=== PATIENT | female | born 1970 | race African-American/Black ===

== ENCOUNTER 2018-02-28 05:25 | Inpatient (IN) | payer MEDICARE, OTHER ==
[2018-02-28] VITALS (8 sets, daily range): BP systolic 91–121; BP diastolic 51–86
[~2018-02-28] VITALS: Ht 160 cm; Wt 66.0 kg
[~2018-02-28 05:25] MED LIST: AMIT25TA9 PO; DICL100G16 PO; FLUT1DIS5 INH; HYDR4TAB56 PO; MONT10TA24 PO; RANI150T7 PO; TIOT18CA3 INH
[2018-02-28] MEDS ORDERED: ALBUTEROL (0.083%) 2.5MG/3ML NEB HHN STA ×2 (05:59→06:19)
[2018-02-28] MEDS ORDERED: IPRATROPIUM BROMIDE (0.02%) 0.5MG/2.5ML NEB HHN STA ×2 (05:59→06:19)
[2018-02-28] MEDS ORDERED: METHYLPREDNISOLONE SOD SUCC 125 MG/2 ML VIAL IV STA (05:59)
[2018-02-28] MEDS ORDERED: ACETAMINOPHEN 325MG TABLET PO STA (06:19)
[2018-02-28] MEDS ORDERED: LEVOFLOXACIN 750MG PREMIX 150 ML IV ONE (06:30)
[2018-02-28] MEDS ORDERED: SODIUM CHLORIDE 0.9% 1000ML BAG (SEPSIS BOLUS) IV ONE (06:30)
[2018-02-28 07:00] LABS: BASOPHILS % 0.9 % (0.0-2.0); EOSINOPHILS % 0.8 % (0.0-5.0); HEMATOCRIT. 42.4 % (36.0-48.0); HEMOGLOBIN. 13.7 g/dL (12.0-16.0); LYMPHOCYTES % 22.6 % (20.0-50.0); MEAN CORPUSCULAR VOLUME 86.8 fL (81.0-99.0); MEAN PLATELET VOLUME 8.1 fl (7.4-10.4); MONOCYTES % 12.8 % (2.0-8.0); NEUTROPHILS % 62.9 % (40.0-76.0); PLATELET 272 x1000/uL (130-400); RED BLOOD CELL COUNT 4.89 mill/uL (4.2-5.4); RED CELL DISTRIBUTION WIDTH 16.5 % (11.6-14.6)
[2018-02-28 07:05] LABS: CHLORIDE 96 mEq/L (98-107)
[2018-02-28] MEDS ORDERED: MORPHINE SULFATE 4 MG/ML CPJ (NOT FOR IM USE) IV STA (07:23)
[2018-02-28] MEDS ORDERED: ONDANSETRON HCL 4MG/2ML INJ IV STA (07:23)
[2018-02-28] MEDS ORDERED: HYDROCODONE/ACETAMINOPHEN 5/325MG TABLET PO ONE (07:30)
[2018-02-28 08:59] LABS: BG BASE EXCESS 4.7 mmol/L (-2.0-2.0); BG BILEVEL POS AIRWAY PRESSURE 15/5; BG CARBOXYHEMOGLOBIN 5.5 % (0.5-1.5); BG DEOXYHEMOGLOBIN 0.2 % (0.0-5.0); BG FRACTION INSPIRED OXYGEN 100; BG HCO3 ACT 34.6 mmol/L (22.0-26.0); BG METHEMOGLOBIN 0.4 % (0.0-1.5); BG OXYGEN SATURATION 99.8 % (92.0-98.5); BG OXYHEMOGLOBIN 93.9 % (94.0-97.0); BG PCO2 78.7 mmHg (35.0-45.0); BG PH 7.261 (7.350-7.450); BG SAMPLE SITE RIGHT RADIAL; BG TOTAL HEMOGLOBIN 14.4 g/dL (12.0-18.0); BG VENT MODE MASK - BIPAP; BG VENT RATE 16 set
[2018-02-28] MEDS ORDERED: DIPHENHYDRAMINE 50MG/ML VIAL IV PRN (11:15)
[2018-02-28] MEDS ORDERED: MAGNESIUM/ALUMINUM HYDROXIDE/SIMETHICONE 30ML UDC PO PRN (11:15)
[2018-02-28] MEDS ORDERED: CLONIDINE 0.1MG TABLET PO PRN (11:15)
[2018-02-28] MEDS ORDERED: ONDANSETRON HCL 4MG/2ML INJ IV PRN (11:15)
[2018-02-28] MEDS ORDERED: HYDROCODONE/ACETAMINOPHEN 5/325MG TABLET PO PRN (11:15)
[2018-02-28] MEDS ORDERED: ACETAMINOPHEN 650MG SUPP PR PRN (11:15)
[2018-02-28] MEDS ORDERED: IPRATROPIUM/ALBUTEROL 0.5-3(2.5)MG/3ML NEB INH PRN (11:15)
[2018-02-28] MEDS ORDERED: NA PHOS,M-B/NA PHOS,DI-BA ENEMA 118ML PR PRN (11:15)
[2018-02-28] MEDS: FAMOTIDINE 20MG/2ML VIAL IV SCH ×3 (12:06→21:27)
[2018-02-28] MEDS: ENOXAPARIN 40MG/0.4ML SYR SUBCUT SCH (12:07)
[2018-02-28 12:15] LABS: BG BASE EXCESS 5.6 mmol/L (-2.0-2.0); BG BILEVEL POS AIRWAY PRESSURE 15/5; BG CARBOXYHEMOGLOBIN 1.9 % (0.5-1.5); BG DEOXYHEMOGLOBIN 0.1 % (0.0-5.0); BG FRACTION INSPIRED OXYGEN 100; BG HCO3 ACT 35.5 mmol/L (22.0-26.0); BG METHEMOGLOBIN 0.4 % (0.0-1.5); BG OXYGEN SATURATION 99.9 % (92.0-98.5); BG OXYHEMOGLOBIN 97.6 % (94.0-97.0); BG PCO2 79.4 mmHg (35.0-45.0); BG PH 7.268 (7.350-7.450); BG PO2 558.8 mmHg (75.0-100.0); BG SAMPLE SITE LEFT RADIAL; BG VENT MODE MASK - BIPAP
[2018-02-28] MEDS ORDERED: non (12:36)
[2018-02-28] MEDS ORDERED: LIDO700A30 TP (12:36)
[2018-02-28] MEDS ORDERED: OXYC-523 MT (12:36)
[2018-02-28] MEDS ORDERED: MORP15TA67 MT (12:36)
[2018-02-28] MEDS ORDERED: ATROV INH (12:36)
[2018-02-28] MEDS ORDERED: GABA-531 MT (12:36)
[2018-02-28] MEDS ORDERED: P20 MT (12:36)
[2018-02-28] MEDS: IPRATROPIUM/ALBUTEROL 0.5-3(2.5)MG/3ML NEB HHN SCH ×3 (13:45→20:26)
[2018-02-28] MEDS: METHYLPREDNISOLONE SOD SUCC 40 MG/ML VIAL IV SCH ×3 (14:45→22:00)
[2018-02-28 15:43] LABS: INR 1.1; PROTHROMBIN TIME 10.7 sec (9.1-11.1)
[2018-02-28] MEDS: MONTELUKAST SODIUM 10MG TABLET PO SCH (16:43)
[2018-02-28] MEDS: HYDROCODONE/APAP 7.5/325MG 1 TAB TABLET PO PRN (21:27)
[2018-02-28] MEDS ORDERED: HYDROCODONE/APAP 7.5/325MG 1 TAB TABLET PO PRN (21:30)
[2018-03-01] VITALS (12 sets, daily range): BP systolic 104–152; BP diastolic 19–96
[2018-03-01] MEDS: IPRATROPIUM/ALBUTEROL 0.5-3(2.5)MG/3ML NEB HHN SCH ×6 (00:25→20:42)
[2018-03-01] MEDS: HYDROCODONE/APAP 7.5/325MG 1 TAB TABLET PO PRN ×2 (03:17→06:56)
[2018-03-01] MEDS ORDERED: LEVOFLOXACIN 500MG PREMIX 100 ML IV SCH (06:00)
[2018-03-01] MEDS: METHYLPREDNISOLONE SOD SUCC 40 MG/ML VIAL IV SCH (06:00)
[2018-03-01] MEDS ORDERED: LIDOCAINE HCL/PF 1% 2ML VIAL ONE (07:22)
[2018-03-01] MEDS ORDERED: LIDOCAINE HCL 1% 10 MG/ML 10ML VIAL ONE (07:24)
[2018-03-01] MEDS: PREDNISONE 20MG TABLET PO SCH (08:08)
[2018-03-01 08:48] LABS: BG BASE EXCESS 7.5 mmol/L (-2.0-2.0); BG CARBOXYHEMOGLOBIN 1.1 % (0.5-1.5); BG DEOXYHEMOGLOBIN 18.4 % (0.0-5.0); BG FRACTION INSPIRED OXYGEN 21; BG HCO3 ACT 35.2 mmol/L (22.0-26.0); BG METHEMOGLOBIN 0.3 % (0.0-1.5); BG OXYGEN SATURATION 81.3 % (92.0-98.5); BG OXYHEMOGLOBIN 80.2 % (94.0-97.0); BG PCO2 63.6 mmHg (35.0-45.0); BG PH 7.361 (7.350-7.450); BG PO2 45.7 mmHg (75.0-100.0); BG SAMPLE SITE RIGHT RADIAL; BG TOTAL HEMOGLOBIN 14.1 g/dL (12.0-18.0); BG VENT MODE ROOM AIR
[2018-03-01 10:14] LABS: BASOPHILS % 0.3 % (0.0-2.0); HEMATOCRIT. 41.1 % (36.0-48.0); HEMOGLOBIN. 13.2 g/dL (12.0-16.0); LYMPHOCYTES % 20.9 % (20.0-50.0); MEAN CORPUSCULAR HEMOGLOBIN 28.3 pg (28.0-32.0); MEAN PLATELET VOLUME 8.3 fl (7.4-10.4); MONOCYTES % 13.8 % (2.0-8.0); PLATELET 274 x1000/uL (130-400); RED BLOOD CELL COUNT 4.67 mill/uL (4.2-5.4); RED CELL DISTRIBUTION WIDTH 16.2 % (11.6-14.6)
[2018-03-01 11:07] LABS: CHLORIDE 96 mEq/L (98-107)
[2018-03-01] MEDS: FAMOTIDINE 20MG TABLET PO SCH ×2 (11:15→20:56)
[2018-03-01] MEDS: LEVOFLOXACIN 500MG TABLET PO SCH (11:15)
[2018-03-01] MEDS: ENOXAPARIN 40MG/0.4ML SYR SUBCUT SCH (11:15)
[2018-03-01] MEDS: GUAIFENESIN/CODEINE 200-20MG/10ML UDC PO PRN (11:16)
[2018-03-01] MEDS: HYDROCODONE/ACETAMINOPHEN 10/325MG TABLET PO PRN ×3 (11:16→23:36)
[2018-03-01 11:19] LABS: LDL CHOLESTEROL 113 mg/dL (5-100)
[2018-03-01 11:20] LABS: HDL CHOLESTEROL 77 mg/dL (40-59)
[2018-03-01] MEDS: MONTELUKAST SODIUM 10MG TABLET PO SCH (17:22)
[2018-03-01] MEDS: ATORVASTATIN CALCIUM 10MG TABLET PO SCH (20:56)
[2018-03-01] MEDS: DIPHENHYDRAMINE 25MG CAPSULE PO SCH (21:27)
[2018-03-01] MEDS ORDERED: ONDANSETRON HCL 4MG TABLET PO PRN (21:30)
[2018-03-02] VITALS (12 sets, daily range): BP systolic 93–141; BP diastolic 63–89
[2018-03-02] MEDS: IPRATROPIUM/ALBUTEROL 0.5-3(2.5)MG/3ML NEB HHN SCH ×5 (00:26→21:26)
[2018-03-02] MEDS: HYDROCODONE/ACETAMINOPHEN 10/325MG TABLET PO PRN ×3 (05:53→18:38)
[2018-03-02 07:14] LABS: BASOPHILS % 0.1 % (0.0-2.0); EOSINOPHILS % 0.4 % (0.0-5.0); HEMATOCRIT. 38.5 % (36.0-48.0); HEMOGLOBIN. 12.1 g/dL (12.0-16.0); LYMPHOCYTES % 47.8 % (20.0-50.0); MEAN CORPUSCULAR HEMOGLOBIN 27.7 pg (28.0-32.0); MONOCYTES % 12.3 % (2.0-8.0); NEUTROPHILS % 39.4 % (40.0-76.0); PLATELET 268 x1000/uL (130-400); RED BLOOD CELL COUNT 4.37 mill/uL (4.2-5.4); RED CELL DISTRIBUTION WIDTH 16.4 % (11.6-14.6)
[2018-03-02] MEDS: PREDNISONE 20MG TABLET PO SCH (08:15)
[2018-03-02] MEDS: ENOXAPARIN 40MG/0.4ML SYR SUBCUT SCH (08:15)
[2018-03-02] MEDS: FAMOTIDINE 20MG TABLET PO SCH ×2 (08:15→20:18)
[2018-03-02 08:50] LABS: CHLORIDE 98 mEq/L (98-107)
[2018-03-02] MEDS: ACETAMINOPHEN 325MG TABLET PO PRN (09:59)
[2018-03-02] MEDS: LEVOFLOXACIN 500MG TABLET PO SCH (10:00)
[2018-03-02] MEDS: MONTELUKAST SODIUM 10MG TABLET PO SCH (16:09)
[2018-03-02] MEDS: DIPHENHYDRAMINE 25MG CAPSULE PO SCH (20:18)
[2018-03-02] MEDS: ATORVASTATIN CALCIUM 10MG TABLET PO SCH (20:18)
[2018-03-02] MEDS: GUAIFENESIN/CODEINE 200-20MG/10ML UDC PO PRN (20:20)
[2018-03-03] VITALS (13 sets, daily range): BP systolic 103–139; BP diastolic 60–79
[2018-03-03] MEDS: IPRATROPIUM/ALBUTEROL 0.5-3(2.5)MG/3ML NEB HHN SCH ×6 (01:07→20:22)
[2018-03-03] MEDS: HYDROCODONE/ACETAMINOPHEN 10/325MG TABLET PO PRN ×3 (01:33→14:11)
[2018-03-03] MEDS: ACETAMINOPHEN 325MG TABLET PO PRN (05:02)
[2018-03-03] MEDS: FAMOTIDINE 20MG TABLET PO SCH ×2 (08:05→21:15)
[2018-03-03] MEDS: PREDNISONE 20MG TABLET PO SCH (08:05)
[2018-03-03] MEDS: ENOXAPARIN 40MG/0.4ML SYR SUBCUT SCH (08:06)
[2018-03-03] MEDS: GUAIFENESIN/CODEINE 200-20MG/10ML UDC PO PRN ×2 (08:06→21:31)
[2018-03-03] MEDS: BUDESONIDE 0.5MG/2ML NEB HHN SCH ×2 (08:43→20:22)
[2018-03-03 10:07] LABS: BASOPHILS % 0.4 % (0.0-2.0); EOSINOPHILS % 0.6 % (0.0-5.0); HEMATOCRIT. 40.6 % (36.0-48.0); HEMOGLOBIN. 12.8 g/dL (12.0-16.0); LYMPHOCYTES % 51.8 % (20.0-50.0); MEAN CORPUSCULAR HEMOGLOBIN 28.1 pg (28.0-32.0); MEAN CORPUSCULAR VOLUME 88.9 fL (81.0-99.0); MONOCYTES % 8.6 % (2.0-8.0); NEUTROPHILS % 38.6 % (40.0-76.0); PLATELET 285 x1000/uL (130-400); RED BLOOD CELL COUNT 4.57 mill/uL (4.2-5.4); RED CELL DISTRIBUTION WIDTH 16.1 % (11.6-14.6)
[2018-03-03 10:11] LABS: CHLORIDE 98 mEq/L (98-107)
[2018-03-03] MEDS: LEVOFLOXACIN 500MG TABLET PO SCH (10:18)
[2018-03-03 10:46] LABS: BG BASE EXCESS 4.5 mmol/L (-2.0-2.0); BG CARBOXYHEMOGLOBIN 0.5 % (0.5-1.5); BG DEOXYHEMOGLOBIN 5.4 % (0.0-5.0); BG HCO3 ACT 32.6 mmol/L (22.0-26.0); BG METHEMOGLOBIN 0.4 % (0.0-1.5); BG OXYGEN SATURATION 94.6 % (92.0-98.5); BG OXYHEMOGLOBIN 93.7 % (94.0-97.0); BG PCO2 65.1 mmHg (35.0-45.0); BG PH 7.317 (7.350-7.450); BG PO2 77.5 mmHg (75.0-100.0); BG SAMPLE SITE LEFT RADIAL; BG TOTAL HEMOGLOBIN 13.1 g/dL (12.0-18.0); BG VENT MODE NASAL CANNULA
[2018-03-03] MEDS: MONTELUKAST SODIUM 10MG TABLET PO SCH (16:27)
[2018-03-03] MEDS: DIPHENHYDRAMINE 25MG CAPSULE PO SCH (21:15)
[2018-03-03] MEDS: ATORVASTATIN CALCIUM 10MG TABLET PO SCH (21:15)
[2018-03-04] VITALS (10 sets, daily range): BP systolic 102–130; BP diastolic 69–94
[2018-03-04] MEDS: IPRATROPIUM/ALBUTEROL 0.5-3(2.5)MG/3ML NEB HHN SCH ×6 (00:15→20:13)
[2018-03-04 04:36] LABS: *COCAINE SCREEN URINE NEGATIVE (NEGATIVE); METHADONE URINE SCREEN NEGATIVE (NEGATIVE)
[2018-03-04 04:37] LABS: *AMPHETAMINES SCREEN URINE NEGATIVE (NEGATIVE); *BARBITURATES SCREEN URINE NEGATIVE (NEGATIVE); *BENZODIAZEPINES SCREEN URINE PRESUMTIVE POSITIVE (NEGATIVE); CANNABINOID URINE SCREEN PRESUMTIVE POSITIVE (NEGATIVE); OPIATES URINE SCREEN PRESUMTIVE POSITIVE (NEGATIVE); PHENCYCLIDINE URINE SCREEN NEGATIVE (NEGATIVE)
[2018-03-04] MEDS: GUAIFENESIN/CODEINE 200-20MG/10ML UDC PO PRN ×2 (04:58→20:42)
[2018-03-04] MEDS: HYDROCODONE/ACETAMINOPHEN 10/325MG TABLET PO PRN ×2 (04:59→08:43)
[2018-03-04 06:53] LABS: HEMATOCRIT 37.3 % (36.0-48.0); HEMOGLOBIN 11.8 g/dL (12.0-16.0); MEAN CORPUSCULAR HEMOGLOBIN 27.8 pg (28.0-32.0); MEAN CORPUSCULAR VOLUME 87.9 fL (81.0-99.0); PLATELET 260 x1000/uL (130-400); RED BLOOD CELL COUNT 4.24 mill/uL (4.2-5.4); RED CELL DISTRIBUTION WIDTH 16.2 % (11.6-14.6)
[2018-03-04 07:47] LABS: CHLORIDE 97 mEq/L (98-107)
[2018-03-04] MEDS: BUDESONIDE 0.5MG/2ML NEB HHN SCH ×2 (08:40→20:13)
[2018-03-04] MEDS: FAMOTIDINE 20MG TABLET PO SCH ×2 (08:42→20:23)
[2018-03-04] MEDS: ENOXAPARIN 40MG/0.4ML SYR SUBCUT SCH (08:42)
[2018-03-04] MEDS: PREDNISONE 20MG TABLET PO SCH (09:00)
[2018-03-04] MEDS: LEVOFLOXACIN 500MG TABLET PO SCH (11:47)
[2018-03-04] MEDS: MONTELUKAST SODIUM 10MG TABLET PO SCH (17:22)
[2018-03-04] MEDS: DIPHENHYDRAMINE 25MG CAPSULE PO SCH (20:23)
[2018-03-04] MEDS: ATORVASTATIN CALCIUM 10MG TABLET PO SCH (20:23)
[2018-03-05] VITALS (9 sets, daily range): BP systolic 112–131; BP diastolic 58–94
[2018-03-05] MEDS: IPRATROPIUM/ALBUTEROL 0.5-3(2.5)MG/3ML NEB HHN SCH ×5 (00:52→15:53)
[2018-03-05] MEDS: HYDROCODONE/ACETAMINOPHEN 10/325MG TABLET PO PRN (05:01)
[2018-03-05 08:03] LABS: CHLORIDE 98 mEq/L (98-107)
[2018-03-05] MEDS: FAMOTIDINE 20MG TABLET PO SCH (08:26)
[2018-03-05] MEDS: PREDNISONE 20MG TABLET PO SCH (08:26)
[2018-03-05] MEDS: ENOXAPARIN 40MG/0.4ML SYR SUBCUT SCH (08:28)
[2018-03-05 09:03] LABS: BG BASE EXCESS 7.4 mmol/L (-2.0-2.0); BG CARBOXYHEMOGLOBIN 1.1 % (0.5-1.5); BG DEOXYHEMOGLOBIN 6.9 % (0.0-5.0); BG FRACTION INSPIRED OXYGEN 28; BG HCO3 ACT 33.7 mmol/L (22.0-26.0); BG METHEMOGLOBIN 0.3 % (0.0-1.5); BG OXYHEMOGLOBIN 91.7 % (94.0-97.0); BG PCO2 55.2 mmHg (35.0-45.0); BG PH 7.404 (7.350-7.450); BG PO2 67.7 mmHg (75.0-100.0); BG SAMPLE SITE RIGHT BRACHIAL; BG TOTAL HEMOGLOBIN 13.3 g/dL (12.0-18.0); BG VENT MODE NASAL CANNULA
[2018-03-05] MEDS: LEVOFLOXACIN 500MG TABLET PO SCH (11:00)
[2018-03-05 11:24] LABS: HEMATOCRIT 38.9 % (36.0-48.0); HEMOGLOBIN 12.3 g/dL (12.0-16.0); MEAN CORPUSCULAR HEMOGLOBIN 27.9 pg (28.0-32.0); MEAN CORPUSCULAR VOLUME 87.7 fL (81.0-99.0); PLATELET 299 x1000/uL (130-400); RED BLOOD CELL COUNT 4.43 mill/uL (4.2-5.4); RED CELL DISTRIBUTION WIDTH 16.5 % (11.6-14.6)
[2018-03-05] MEDS: BUDESONIDE 0.5MG/2ML NEB HHN SCH (11:42)
[2018-03-05] MEDS: GUAIFENESIN/CODEINE 200-20MG/10ML UDC PO PRN (12:33)
[2018-03-05] MEDS ORDERED: LIDOCAINE HCL/PF 1% 2ML VIAL ONE (13:19)
== END 2018-03-05 16:50 | disposition home or self-care (01) | DRG 189 ==
LOC: ER 05:25 → EDBEDREQTM 08:08 → EDBEDREQSVC 08:08 → EDBEDREQ 08:08 → 3WST 08:23 → EDBEDREQTM 08:24 → EDBEDREQ 08:24 → ENRESERV 09:14
PROVIDERS: ADMIT Internal Medicine; ATTEND Internal Medicine
PROC: 5A09357 Assistance with Respiratory Ventilation, Less than 24 Consecutive Hours, Continuous Positive Airway Pressure (ICD-10-PCS; principal; 2018-02-28)
DX: J96.02 Acute respiratory failure with hypercapnia (principal); J44.1 Chronic obstructive pulmonary disease with (acute) exacerbation; M87.9 Osteonecrosis, unspecified; F11.20 Opioid dependence, uncomplicated; E87.2 Acidosis; J44.0 Chronic obstructive pulmonary disease with (acute) lower respiratory infection; I10 Essential (primary) hypertension; E78.5 Hyperlipidemia, unspecified; R73.9 Hyperglycemia, unspecified; F41.9 Anxiety disorder, unspecified; G89.4 Chronic pain syndrome; M19.90 Unspecified osteoarthritis, unspecified site; Z86.718 Personal history of other venous thrombosis and embolism; Z91.19 Patient's noncompliance with other medical treatment and regimen; Z99.81 Dependence on supplemental oxygen; Z88.0 Allergy status to penicillin; Z88.1 Allergy status to other antibiotic agents; Z79.899 Other long term (current) drug therapy
CPT/HCPCS: 36415; 36600; 71045; 80048; 80053; 80061; 80305; 82375; 82805; 83605; 83880; 84439; 84443; 84484; 85025; 85027; 85610; 87040; 93005; 93306; 93970; 94640; 94660; 96365; 96366; 96375; 97162; 99291; C1893; J1200; J1650; J1956; J2270; J2405; J2920; J2930; J3490; J7030; J7512; J7611; J7620; J7626; Q0163

== ENCOUNTER 2018-05-27 11:19 | Inpatient (IN) | payer OTHER, MEDICAID ==
[~2018-05-27] VITALS: Ht 172.7 cm; Wt 63.5 kg
[2018-05-27] VITALS (22 sets, daily range): BP systolic 115–135; BP diastolic 62–111
[~2018-05-27 11:19] MED LIST changes: +ATROV INH; -DICL100G16 PO; -FLUT1DIS5 INH; +GABA-531 MT; -HYDR4TAB56 PO; +OXYC-523 MT; -RANI150T7 PO
[2018-05-27] MEDS ORDERED: METHYLPREDNISOLONE SOD SUCC 125 MG/2 ML VIAL IV STA (11:40)
[2018-05-27] MEDS ORDERED: IPRATROPIUM BROMIDE (0.02%) 0.5MG/2.5ML NEB HHN STA (11:40)
[2018-05-27] MEDS ORDERED: ALBUTEROL (0.083%) 2.5MG/3ML NEB HHN STA (11:40)
[2018-05-27] MEDS ORDERED: SODIUM CHLORIDE 0.9% 1000ML BAG (SEPSIS BOLUS) IV ONE (11:45)
[2018-05-27] MEDS ORDERED: MAGNESIUM 2 G PREMIX 50 ML IV ONE (11:45)
[2018-05-27] MEDS ORDERED: EPINEPHRINE 1:1000 1 MG/ML AMP SUBCUT ONE (12:30)
[2018-05-27 12:39] LABS: BASOPHILS % 1.1 % (0.0-2.0); EOSINOPHILS % 0.1 % (0.0-5.0); HEMATOCRIT. 45.1 % (36.0-48.0); HEMOGLOBIN. 14.4 g/dL (12.0-16.0); LYMPHOCYTES % 19.9 % (20.0-50.0); MEAN CORPUSCULAR HEMOGLOBIN 29.5 pg (28.0-32.0); MEAN CORPUSCULAR VOLUME 92.3 fL (81.0-99.0); MEAN PLATELET VOLUME 8.2 fl (7.4-10.4); MONOCYTES % 9.4 % (2.0-8.0); NEUTROPHILS % 69.5 % (40.0-76.0); PLATELET 282 x1000/uL (130-400); RED BLOOD CELL COUNT 4.88 mill/uL (4.2-5.4); RED CELL DISTRIBUTION WIDTH 15.5 % (11.6-14.6)
[2018-05-27 12:46] LABS: INR 1.1; PROTHROMBIN TIME 11.1 sec (9.1-11.1)
[2018-05-27 13:15] LABS: CHLORIDE 100 mEq/L (98-107)
[2018-05-27 13:33] LABS: BG BASE EXCESS 3.7 mmol/L (-2.0-2.0); BG BILEVEL POS AIRWAY PRESSURE ST=15/5; BG DEOXYHEMOGLOBIN 0.2 % (0.0-5.0); BG FRACTION INSPIRED OXYGEN 80; BG HCO3 ACT 38.7 mmol/L (22.0-26.0); BG METHEMOGLOBIN 0.5 % (0.0-1.5); BG OXYGEN SATURATION 99.8 % (92.0-98.5); BG OXYHEMOGLOBIN 97.3 % (94.0-97.0); BG PCO2 140.4 mmHg (35.0-45.0); BG PH 7.058 (7.350-7.450); BG PO2 323.7 mmHg (75.0-100.0); BG PRESSURE SUPPORT 10; BG SAMPLE SITE LEFT RADIAL; BG TOTAL HEMOGLOBIN 13.6 g/dL (12.0-18.0); BG VENT MODE MASK - BIPAP; BG VENT RATE 12 set
[2018-05-27] MEDS ORDERED: PROPOFOL 10MG/ML 100ML 100 ML IV SCH (14:15)
[2018-05-27] MEDS ORDERED: FENTANYL CITRATE/PF 50MCG/ML 2ML VIAL IV ONE (15:00)
[2018-05-27] MEDS ORDERED: FENTANYL CITRATE/PF 500 MCG in SODIUM CHLORIDE 0.9% 40 ML IV PRN (15:00)
[2018-05-27 15:39] LABS: BG BASE EXCESS -0.7 mmol/L (-2.0-2.0); BG CARBOXYHEMOGLOBIN 1.4 % (0.5-1.5); BG DEOXYHEMOGLOBIN 2.6 % (0.0-5.0); BG FRACTION INSPIRED OXYGEN 50; BG HCO3 ACT 27.3 mmol/L (22.0-26.0); BG METHEMOGLOBIN 0.3 % (0.0-1.5); BG OXYGEN SATURATION 97.4 % (92.0-98.5); BG OXYHEMOGLOBIN 95.7 % (94.0-97.0); BG PCO2 59.9 mmHg (35.0-45.0); BG PH 7.276 (7.350-7.450); BG PO2 91.4 mmHg (75.0-100.0); BG SAMPLE SITE RIGHT RADIAL; BG TIDAL VOLUME(mL) 450 mL; BG TOTAL HEMOGLOBIN 13.1 g/dL (12.0-18.0); BG VENT MODE VENT - A/C; BG VENT RATE 24 set
[2018-05-27 16:09] LABS: CLARITY URINE CLEAR (CLEAR); COLOR URINE YELLOW (YELLOW); KETONES URINE 1+ (NEGATIVE); LEUKOCYTE ESTERASE URINE NEGATIVE (NEGATIVE); NITRITE URINE NEGATIVE (NEGATIVE); OCCULT BLOOD URINE TRACE (NEGATIVE); PH URINE 5.5 (4.5-8.0); PROTEIN URINE 2+ (NEGATIVE); SPECIFIC GRAVITY URINE 1.016 (1.005-1.030); UROBILINOGEN URINE 0.2 E.U./dL (0.2-1.0)
[2018-05-27 16:17] LABS: *AMPHETAMINES SCREEN URINE NEGATIVE (NEGATIVE); *BARBITURATES SCREEN URINE NEGATIVE (NEGATIVE); *BENZODIAZEPINES SCREEN URINE PRESUMTIVE POSITIVE (NEGATIVE); *COCAINE SCREEN URINE NEGATIVE (NEGATIVE)
[2018-05-27] MEDS ORDERED: SUCCINYLCHOLINE CHLORIDE 200MG/10ML IV ONE (16:18)
[2018-05-27] MEDS ORDERED: ETOMIDATE 2MG/ML 10ML VIAL IV ONE (16:18)
[2018-05-27 16:19] LABS: METHADONE URINE SCREEN NEGATIVE (NEGATIVE); OPIATES URINE SCREEN PRESUMTIVE POSITIVE (NEGATIVE)
[2018-05-27 16:20] LABS: CANNABINOID URINE SCREEN PRESUMTIVE POSITIVE (NEGATIVE); PHENCYCLIDINE URINE SCREEN NEGATIVE (NEGATIVE)
[2018-05-27] MEDS: IPRATROPIUM/ALBUTEROL 0.5-3(2.5)MG/3ML NEB HHN PRN (17:15)
[2018-05-27] MEDS: ENOXAPARIN 40MG/0.4ML SYR SUBCUT SCH (17:55)
[2018-05-27] MEDS: PROPOFOL 10MG/ML 100ML 100 ML IV PRN (19:11)
[2018-05-27] MEDS: IPRATROPIUM/ALBUTEROL 0.5-3(2.5)MG/3ML NEB HHN SCH (21:05)
[2018-05-27] MEDS ORDERED: DEXT 5%/0.45% NACL 1000ML 1,000 ML IV SCH (22:00)
[2018-05-27] MEDS: METHYLPREDNISOLONE SOD SUCC 125 MG/2 ML VIAL IV SCH (22:08)
[2018-05-28] VITALS (94 sets, daily range): BP systolic 92–170; BP diastolic 34–115
[2018-05-28] MEDS: IPRATROPIUM/ALBUTEROL 0.5-3(2.5)MG/3ML NEB HHN SCH ×3 (00:23→19:50)
[2018-05-28] MEDS: PROPOFOL 10MG/ML 100ML 100 ML IV PRN ×2 (04:04→08:40)
[2018-05-28] MEDS: IPRATROPIUM/ALBUTEROL 0.5-3(2.5)MG/3ML NEB HHN PRN (04:46)
[2018-05-28] MEDS: METHYLPREDNISOLONE SOD SUCC 125 MG/2 ML VIAL IV SCH (05:00)
[2018-05-28 05:34] LABS: BASOPHILS % 0.2 % (0.0-2.0); HEMATOCRIT. 39.1 % (36.0-48.0); HEMOGLOBIN. 12.6 g/dL (12.0-16.0); LYMPHOCYTES % 9.9 % (20.0-50.0); MEAN CORPUSCULAR HEMOGLOBIN 29.1 pg (28.0-32.0); MEAN CORPUSCULAR VOLUME 90.3 fL (81.0-99.0); MEAN PLATELET VOLUME 8.8 fl (7.4-10.4); MONOCYTES % 4.3 % (2.0-8.0); NEUTROPHILS % 85.6 % (40.0-76.0); PLATELET 264 x1000/uL (130-400); RED BLOOD CELL COUNT 4.33 mill/uL (4.2-5.4); RED CELL DISTRIBUTION WIDTH 15.4 % (11.6-14.6)
[2018-05-28 05:44] LABS: CHLORIDE 102 mEq/L (98-107)
[2018-05-28 07:27] LABS: BG BASE EXCESS 3.1 mmol/L (-2.0-2.0); BG DEOXYHEMOGLOBIN 1.8 % (0.0-5.0); BG FRACTION INSPIRED OXYGEN 50; BG HCO3 ACT 27.2 mmol/L (22.0-26.0); BG METHEMOGLOBIN 0.2 % (0.0-1.5); BG OXYGEN SATURATION 98.2 % (92.0-98.5); BG PCO2 40.1 mmHg (35.0-45.0); BG PO2 104.8 mmHg (75.0-100.0); BG SAMPLE SITE RIGHT BRACHIAL; BG TIDAL VOLUME(mL) 450 mL; BG TOTAL HEMOGLOBIN 13.5 g/dL (12.0-18.0); BG VENT MODE VENT - A/C; BG VENT RATE 20 set
[2018-05-28] MEDS: FAMOTIDINE 20MG/2ML VIAL IV SCH (08:39)
[2018-05-28] MEDS ORDERED: CLONIDINE 0.1MG TABLET PO PRN (11:15)
[2018-05-28] MEDS ORDERED: FENTANYL CITRATE/PF 500 MCG in SODIUM CHLORIDE 0.9% 40 ML IV PRN (12:00)
[2018-05-28] MEDS ORDERED: MIDAZOLAM HCL 100 MG in DEXT 5% WATER 80 ML IV PRN (12:00)
[2018-05-28] MEDS ORDERED: POTASSIUM PHOS,M-BASIC-D-BASIC 15 MMOL in DEXT 5% WATER 250 ML IV SCH (12:30)
[2018-05-28] MEDS: MIDAZOLAM HCL 50 MG in DEXTROSE 5% WATER 40 ML IV PRN ×2 (12:33→17:41)
[2018-05-28] MEDS: FENTANYL CITRATE/PF 500 MCG in SODIUM CHLORIDE 0.9% 40 ML IV PRN ×3 (12:34→22:08)
[2018-05-28] MEDS: NICOTINE 14MG PATCH TD SCH (15:39)
[2018-05-28] MEDS: METHYLPREDNISOLONE SOD SUCC 40 MG/ML VIAL IV SCH ×2 (15:40→22:58)
[2018-05-28] MEDS ORDERED: MONTELUKAST SODIUM 10MG TABLET PO SCH (17:00)
[2018-05-28] MEDS ORDERED: METHYLPREDNISOLONE SOD SUCC 40 MG/ML VIAL IV SCH (17:00)
[2018-05-28] MEDS: ENOXAPARIN 40MG/0.4ML SYR SUBCUT SCH (17:40)
[2018-05-28] MEDS: LEVOFLOXACIN 500MG PREMIX 100 ML IV SCH (17:42)
[2018-05-28] MEDS: BUDESONIDE 0.5MG/2ML NEB HHN SCH (19:50)
[2018-05-29] VITALS (101 sets, daily range): BP systolic 88–160; BP diastolic 63–119
[2018-05-29] MEDS: IPRATROPIUM/ALBUTEROL 0.5-3(2.5)MG/3ML NEB HHN SCH ×4 (01:44→20:34)
[2018-05-29] MEDS: MIDAZOLAM HCL 50 MG in DEXTROSE 5% WATER 40 ML IV PRN ×3 (01:49→23:09)
[2018-05-29] MEDS: FENTANYL CITRATE/PF 500 MCG in SODIUM CHLORIDE 0.9% 40 ML IV PRN ×3 (03:52→18:51)
[2018-05-29 05:38] LABS: BASOPHILS % 0.1 % (0.0-2.0); HEMATOCRIT. 36.4 % (36.0-48.0); HEMOGLOBIN. 11.7 g/dL (12.0-16.0); LYMPHOCYTES % 7.6 % (20.0-50.0); MEAN CORPUSCULAR HEMOGLOBIN 28.9 pg (28.0-32.0); MEAN CORPUSCULAR VOLUME 90.1 fL (81.0-99.0); MEAN PLATELET VOLUME 8.4 fl (7.4-10.4); MONOCYTES % 5.3 % (2.0-8.0); PLATELET 234 x1000/uL (130-400); RED BLOOD CELL COUNT 4.04 mill/uL (4.2-5.4); RED CELL DISTRIBUTION WIDTH 14.9 % (11.6-14.6)
[2018-05-29 06:09] LABS: CHLORIDE 103 mEq/L (98-107)
[2018-05-29] MEDS: METHYLPREDNISOLONE SOD SUCC 40 MG/ML VIAL IV SCH ×3 (06:11→23:19)
[2018-05-29] MEDS: BUDESONIDE 0.5MG/2ML NEB HHN SCH ×2 (07:40→20:34)
[2018-05-29 07:55] LABS: BG BASE EXCESS 0.5 mmol/L (-2.0-2.0); BG CARBOXYHEMOGLOBIN 0.2 % (0.5-1.5); BG DEOXYHEMOGLOBIN 2.3 % (0.0-5.0); BG FRACTION INSPIRED OXYGEN 50; BG HCO3 ACT 25.1 mmol/L (22.0-26.0); BG METHEMOGLOBIN 0.3 % (0.0-1.5); BG OXYGEN SATURATION 97.7 % (92.0-98.5); BG OXYHEMOGLOBIN 97.2 % (94.0-97.0); BG PCO2 40.4 mmHg (35.0-45.0); BG PH 7.412 (7.350-7.450); BG PO2 112.2 mmHg (75.0-100.0); BG SAMPLE SITE RIGHT BRACHIAL; BG TIDAL VOLUME(mL) 500 mL; BG TOTAL HEMOGLOBIN 12.2 g/dL (12.0-18.0); BG VENT MODE VENT - A/C; BG VENT RATE 16 set
[2018-05-29 09:16] LABS: BG BASE EXCESS 5.4 mmol/L (-2.0-2.0); BG DEOXYHEMOGLOBIN 1.5 % (0.0-5.0); BG FRACTION INSPIRED OXYGEN 50; BG HCO3 ACT 32.1 mmol/L (22.0-26.0); BG METHEMOGLOBIN 0.3 % (0.0-1.5); BG OXYGEN SATURATION 98.5 % (92.0-98.5); BG OXYHEMOGLOBIN 97.2 % (94.0-97.0); BG PCO2 56.6 mmHg (35.0-45.0); BG PH 7.372 (7.350-7.450); BG PO2 130.8 mmHg (75.0-100.0); BG PRESSURE SUPPORT 8; BG SAMPLE SITE RIGHT BRACHIAL; BG TOTAL HEMOGLOBIN 13.2 g/dL (12.0-18.0); BG VENT MODE VENT - CPAP
[2018-05-29] MEDS: NICOTINE 14MG PATCH TD SCH (09:30)
[2018-05-29] MEDS: FAMOTIDINE 20MG/2ML VIAL IV SCH (09:30)
[2018-05-29] MEDS: LEVOFLOXACIN 500MG PREMIX 100 ML IV SCH (17:17)
[2018-05-29] MEDS: ENOXAPARIN 40MG/0.4ML SYR SUBCUT SCH (17:17)
[2018-05-29 17:46] LABS: BG BASE EXCESS 6.3 mmol/L (-2.0-2.0); BG CARBOXYHEMOGLOBIN 0.6 % (0.5-1.5); BG DEOXYHEMOGLOBIN 1.8 % (0.0-5.0); BG FRACTION INSPIRED OXYGEN 50; BG HCO3 ACT 30.7 mmol/L (22.0-26.0); BG METHEMOGLOBIN 0.1 % (0.0-1.5); BG OXYGEN SATURATION 98.2 % (92.0-98.5); BG OXYHEMOGLOBIN 97.5 % (94.0-97.0); BG PCO2 43.3 mmHg (35.0-45.0); BG PH 7.468 (7.350-7.450); BG PO2 119.2 mmHg (75.0-100.0); BG SAMPLE SITE RIGHT RADIAL; BG TIDAL VOLUME(mL) 500 mL; BG TOTAL HEMOGLOBIN 11.6 g/dL (12.0-18.0); BG VENT MODE VENT - A/C; BG VENT RATE 16 set
[2018-05-30] VITALS (60 sets, daily range): BP systolic 88–142; BP diastolic 56–97
[2018-05-30] MEDS: FENTANYL CITRATE/PF 500 MCG in SODIUM CHLORIDE 0.9% 40 ML IV PRN (01:24)
[2018-05-30] MEDS: IPRATROPIUM/ALBUTEROL 0.5-3(2.5)MG/3ML NEB HHN SCH ×4 (02:01→21:25)
[2018-05-30 06:02] LABS: HEMATOCRIT 36.7 % (36.0-48.0); HEMOGLOBIN 11.8 g/dL (12.0-16.0); MEAN CORPUSCULAR HEMOGLOBIN 28.8 pg (28.0-32.0); PLATELET 248 x1000/uL (130-400); RED BLOOD CELL COUNT 4.08 mill/uL (4.2-5.4); RED CELL DISTRIBUTION WIDTH 15.4 % (11.6-14.6)
[2018-05-30 06:12] LABS: CHLORIDE 104 mEq/L (98-107)
[2018-05-30] MEDS: METHYLPREDNISOLONE SOD SUCC 40 MG/ML VIAL IV SCH ×2 (06:19→22:19)
[2018-05-30 06:24] LABS: LDL CHOLESTEROL 109 mg/dL (5-100)
[2018-05-30 06:26] LABS: HDL CHOLESTEROL 50 mg/dL (40-59)
[2018-05-30 07:44] LABS: BG CARBOXYHEMOGLOBIN 0.7 % (0.5-1.5); BG DEOXYHEMOGLOBIN 1.8 % (0.0-5.0); BG HCO3 ACT 29.2 mmol/L (22.0-26.0); BG METHEMOGLOBIN 0.2 % (0.0-1.5); BG OXYGEN SATURATION 98.2 % (92.0-98.5); BG OXYHEMOGLOBIN 97.3 % (94.0-97.0); BG PCO2 46.4 mmHg (35.0-45.0); BG PH 7.417 (7.350-7.450); BG PO2 115.5 mmHg (75.0-100.0); BG SAMPLE SITE RIGHT RADIAL; BG TIDAL VOLUME(mL) 500 mL; BG TOTAL HEMOGLOBIN 12.4 g/dL (12.0-18.0); BG VENT MODE VENT - A/C; BG VENT RATE 16 set
[2018-05-30] MEDS: BUDESONIDE 0.5MG/2ML NEB HHN SCH ×2 (08:40→21:26)
[2018-05-30] MEDS: MIDAZOLAM HCL 100 MG in DEXT 5% WATER 80 ML IV PRN ×2 (09:05→18:02)
[2018-05-30] MEDS: NICOTINE 14MG PATCH TD SCH (09:29)
[2018-05-30] MEDS: PANTOPRAZOLE SODIUM 40 MG/VIAL IV SCH (09:29)
[2018-05-30] MEDS: FENTANYL CITRATE/PF 1,000 MCG in SODIUM CHLORIDE 0.9% 80 ML IV PRN (10:18)
[2018-05-30] MEDS: ENOXAPARIN 40MG/0.4ML SYR SUBCUT SCH (17:12)
[2018-05-30] MEDS: LEVOFLOXACIN 500MG PREMIX 100 ML IV SCH (17:12)
[2018-05-30] MEDS: ATORVASTATIN CALCIUM 20MG TABLET PO SCH (22:19)
[2018-05-31] VITALS (47 sets, daily range): BP systolic 87–158; BP diastolic 61–109
[2018-05-31] MEDS: IPRATROPIUM/ALBUTEROL 0.5-3(2.5)MG/3ML NEB HHN SCH ×4 (00:27→20:16)
[2018-05-31] MEDS: ACETYLCYSTEINE 100MG/ML 10% VIAL 4ML INH SCH ×3 (00:27→13:56)
[2018-05-31] MEDS: FENTANYL CITRATE/PF 1,000 MCG in SODIUM CHLORIDE 0.9% 80 ML IV PRN ×2 (02:35→16:08)
[2018-05-31 05:34] LABS: BASOPHILS % 0.2 % (0.0-2.0); HEMOGLOBIN. 11.7 g/dL (12.0-16.0); LYMPHOCYTES % 9.2 % (20.0-50.0); MEAN CORPUSCULAR HEMOGLOBIN 28.4 pg (28.0-32.0); MEAN CORPUSCULAR VOLUME 89.7 fL (81.0-99.0); MEAN PLATELET VOLUME 8.9 fl (7.4-10.4); MONOCYTES % 7.5 % (2.0-8.0); NEUTROPHILS % 83.1 % (40.0-76.0); PLATELET 272 x1000/uL (130-400); RED BLOOD CELL COUNT 4.13 mill/uL (4.2-5.4); RED CELL DISTRIBUTION WIDTH 15.1 % (11.6-14.6)
[2018-05-31 05:43] LABS: CHLORIDE 104 mEq/L (98-107)
[2018-05-31 07:57] LABS: BG BASE EXCESS 5.1 mmol/L (-2.0-2.0); BG CARBOXYHEMOGLOBIN 0.6 % (0.5-1.5); BG DEOXYHEMOGLOBIN 2.1 % (0.0-5.0); BG FRACTION INSPIRED OXYGEN 40; BG HCO3 ACT 32.1 mmol/L (22.0-26.0); BG METHEMOGLOBIN 0.3 % (0.0-1.5); BG OXYGEN SATURATION 97.9 % (92.0-98.5); BG PCO2 58.7 mmHg (35.0-45.0); BG PH 7.356 (7.350-7.450); BG PO2 111.6 mmHg (75.0-100.0); BG PRESSURE SUPPORT 12; BG SAMPLE SITE RIGHT RADIAL; BG TOTAL HEMOGLOBIN 12.7 g/dL (12.0-18.0); BG VENT MODE VENT - CPAP
[2018-05-31] MEDS: BUDESONIDE 0.5MG/2ML NEB HHN SCH ×2 (08:11→20:12)
[2018-05-31] MEDS: METHYLPREDNISOLONE SOD SUCC 40 MG/ML VIAL IV SCH ×2 (08:28→21:22)
[2018-05-31] MEDS: PANTOPRAZOLE SODIUM 40 MG/VIAL IV SCH (08:28)
[2018-05-31] MEDS: NICOTINE 14MG PATCH TD SCH (08:29)
[2018-05-31] MEDS: MIDAZOLAM HCL 100 MG in DEXT 5% WATER 80 ML IV PRN (10:30)
[2018-05-31] MEDS ORDERED: FUROSEMIDE 40MG/4ML VIAL IVP SCH (14:15)
[2018-05-31] MEDS: ENOXAPARIN 40MG/0.4ML SYR SUBCUT SCH (16:10)
[2018-05-31] MEDS: LEVOFLOXACIN 500MG PREMIX 100 ML IV SCH (16:11)
[2018-05-31] MEDS: ATORVASTATIN CALCIUM 20MG TABLET PO SCH (21:22)
[2018-06-01] VITALS (49 sets, daily range): BP systolic 87–150; BP diastolic 57–97
[2018-06-01] MEDS: ACETYLCYSTEINE 100MG/ML 10% VIAL 4ML INH SCH ×2 (02:07→15:00)
[2018-06-01] MEDS: IPRATROPIUM/ALBUTEROL 0.5-3(2.5)MG/3ML NEB HHN SCH ×4 (02:07→21:00)
[2018-06-01] MEDS: MIDAZOLAM HCL 100 MG in DEXT 5% WATER 80 ML IV PRN ×2 (02:32→12:38)
[2018-06-01 05:49] LABS: BASOPHILS % 0.2 % (0.0-2.0); HEMOGLOBIN. 11.7 g/dL (12.0-16.0); LYMPHOCYTES % 12.3 % (20.0-50.0); MEAN CORPUSCULAR HEMOGLOBIN 28.3 pg (28.0-32.0); MEAN CORPUSCULAR VOLUME 89.3 fL (81.0-99.0); MEAN PLATELET VOLUME 8.7 fl (7.4-10.4); MONOCYTES % 10.2 % (2.0-8.0); NEUTROPHILS % 77.3 % (40.0-76.0); PLATELET 266 x1000/uL (130-400); RED BLOOD CELL COUNT 4.14 mill/uL (4.2-5.4); RED CELL DISTRIBUTION WIDTH 14.5 % (11.6-14.6)
[2018-06-01 06:15] LABS: CHLORIDE 99 mEq/L (98-107)
[2018-06-01] MEDS: FENTANYL CITRATE/PF 1,000 MCG in SODIUM CHLORIDE 0.9% 80 ML IV PRN ×2 (07:03→20:41)
[2018-06-01] MEDS: PANTOPRAZOLE SODIUM 40 MG/VIAL IV SCH (09:21)
[2018-06-01] MEDS: NICOTINE 14MG PATCH TD SCH (09:21)
[2018-06-01] MEDS: METHYLPREDNISOLONE SOD SUCC 40 MG/ML VIAL IV SCH ×2 (09:21→21:00)
[2018-06-01 12:49] LABS: BG BASE EXCESS 9.6 mmol/L (-2.0-2.0); BG CARBOXYHEMOGLOBIN 0.2 % (0.5-1.5); BG DEOXYHEMOGLOBIN 2.7 % (0.0-5.0); BG FRACTION INSPIRED OXYGEN 40; BG HCO3 ACT 36.7 mmol/L (22.0-26.0); BG METHEMOGLOBIN 0.2 % (0.0-1.5); BG OXYGEN SATURATION 97.3 % (92.0-98.5); BG OXYHEMOGLOBIN 96.9 % (94.0-97.0); BG PCO2 62.7 mmHg (35.0-45.0); BG PH 7.385 (7.350-7.450); BG PO2 99.2 mmHg (75.0-100.0); BG PRESSURE SUPPORT 8; BG SAMPLE SITE RIGHT RADIAL; BG VENT MODE VENT - CPAP
[2018-06-01] MEDS: LEVOFLOXACIN 500MG PREMIX 100 ML IV SCH (18:18)
[2018-06-01] MEDS: ENOXAPARIN 40MG/0.4ML SYR SUBCUT SCH (18:18)
[2018-06-01] MEDS: ATORVASTATIN CALCIUM 20MG TABLET PO SCH (21:00)
[2018-06-02] VITALS (48 sets, daily range): BP systolic 81–177; BP diastolic 49–86
[2018-06-02] MEDS: ACETYLCYSTEINE 100MG/ML 10% VIAL 4ML INH SCH ×4 (02:00→13:43)
[2018-06-02] MEDS: IPRATROPIUM/ALBUTEROL 0.5-3(2.5)MG/3ML NEB HHN SCH ×4 (02:03→20:10)
[2018-06-02] MEDS: MIDAZOLAM HCL 100 MG in DEXT 5% WATER 80 ML IV PRN ×2 (03:37→19:52)
[2018-06-02 05:43] LABS: HEMATOCRIT 34.8 % (36.0-48.0); HEMOGLOBIN 11.1 g/dL (12.0-16.0); MEAN CORPUSCULAR HEMOGLOBIN 28.6 pg (28.0-32.0); MEAN CORPUSCULAR VOLUME 89.6 fL (81.0-99.0); PLATELET 293 x1000/uL (130-400); RED BLOOD CELL COUNT 3.89 mill/uL (4.2-5.4); RED CELL DISTRIBUTION WIDTH 14.7 % (11.6-14.6)
[2018-06-02 05:50] LABS: CHLORIDE 97 mEq/L (98-107)
[2018-06-02] MEDS: FENTANYL CITRATE/PF 1,000 MCG in SODIUM CHLORIDE 0.9% 80 ML IV PRN ×2 (06:48→19:53)
[2018-06-02 08:00] LABS: BG BASE EXCESS 7.6 mmol/L (-2.0-2.0); BG DEOXYHEMOGLOBIN 1.6 % (0.0-5.0); BG FRACTION INSPIRED OXYGEN 40; BG HCO3 ACT 33.6 mmol/L (22.0-26.0); BG METHEMOGLOBIN 0.2 % (0.0-1.5); BG OXYGEN SATURATION 98.4 % (92.0-98.5); BG OXYHEMOGLOBIN 97.2 % (94.0-97.0); BG PCO2 53.2 mmHg (35.0-45.0); BG PH 7.418 (7.350-7.450); BG PO2 119.1 mmHg (75.0-100.0); BG SAMPLE SITE RIGHT BRACHIAL; BG TIDAL VOLUME(mL) 500 mL; BG TOTAL HEMOGLOBIN 12.4 g/dL (12.0-18.0); BG VENT MODE VENT - A/C; BG VENT RATE 16 set
[2018-06-02] MEDS: NICOTINE 14MG PATCH TD SCH (09:17)
[2018-06-02] MEDS: METHYLPREDNISOLONE SOD SUCC 40 MG/ML VIAL IV SCH (09:17)
[2018-06-02] MEDS: PANTOPRAZOLE SODIUM 40 MG/VIAL IV SCH (09:17)
[2018-06-02] MEDS: ENOXAPARIN 40MG/0.4ML SYR SUBCUT SCH (17:02)
[2018-06-02] MEDS: LEVOFLOXACIN 500MG PREMIX 100 ML IV SCH (17:02)
[2018-06-02] MEDS: ATORVASTATIN CALCIUM 20MG TABLET PO SCH (20:42)
[2018-06-03] VITALS (50 sets, daily range): BP systolic 81–162; BP diastolic 53–98
[2018-06-03] MEDS: IPRATROPIUM/ALBUTEROL 0.5-3(2.5)MG/3ML NEB HHN SCH ×3 (02:00→13:43)
[2018-06-03 05:28] LABS: HEMOGLOBIN 10.9 g/dL (12.0-16.0); MEAN CORPUSCULAR HEMOGLOBIN 28.5 pg (28.0-32.0); MEAN CORPUSCULAR VOLUME 89.3 fL (81.0-99.0); PLATELET 325 x1000/uL (130-400); RED CELL DISTRIBUTION WIDTH 14.5 % (11.6-14.6)
[2018-06-03 05:32] LABS: CHLORIDE 99 mEq/L (98-107)
[2018-06-03 07:59] LABS: BG BASE EXCESS 8.1 mmol/L (-2.0-2.0); BG CARBOXYHEMOGLOBIN 0.6 % (0.5-1.5); BG DEOXYHEMOGLOBIN 1.9 % (0.0-5.0); BG FRACTION INSPIRED OXYGEN 40; BG HCO3 ACT 33.1 mmol/L (22.0-26.0); BG METHEMOGLOBIN 0.3 % (0.0-1.5); BG OXYGEN SATURATION 98.1 % (92.0-98.5); BG OXYHEMOGLOBIN 97.2 % (94.0-97.0); BG PCO2 48.2 mmHg (35.0-45.0); BG PH 7.455 (7.350-7.450); BG PO2 110.6 mmHg (75.0-100.0); BG SAMPLE SITE RIGHT BRACHIAL; BG TIDAL VOLUME(mL) 500 mL; BG TOTAL HEMOGLOBIN 11.7 g/dL (12.0-18.0); BG VENT MODE VENT - A/C; BG VENT RATE 16 set
[2018-06-03] MEDS: MIDAZOLAM HCL 100 MG in DEXT 5% WATER 80 ML IV PRN (08:00)
[2018-06-03] MEDS: ACETYLCYSTEINE 100MG/ML 10% VIAL 4ML INH SCH ×2 (08:30→13:43)
[2018-06-03] MEDS: PANTOPRAZOLE SODIUM 40 MG/VIAL IV SCH (10:20)
[2018-06-03] MEDS: METHYLPREDNISOLONE SOD SUCC 40 MG/ML VIAL IV SCH (10:20)
[2018-06-03] MEDS: NICOTINE 14MG PATCH TD SCH (10:20)
[2018-06-03] MEDS: ACETAMINOPHEN 325MG TABLET PO PRN (13:25)
[2018-06-03] MEDS: FENTANYL CITRATE/PF 1,000 MCG in SODIUM CHLORIDE 0.9% 80 ML IV PRN (15:45)
[2018-06-03] MEDS: ENOXAPARIN 40MG/0.4ML SYR SUBCUT SCH (17:43)
[2018-06-03] MEDS: LEVOFLOXACIN 500MG PREMIX 100 ML IV SCH (17:43)
[2018-06-03 18:47] LABS: BG BASE EXCESS 8.5 mmol/L (-2.0-2.0); BG CARBOXYHEMOGLOBIN 0.6 % (0.5-1.5); BG DEOXYHEMOGLOBIN 2.9 % (0.0-5.0); BG FRACTION INSPIRED OXYGEN 40; BG HCO3 ACT 34.2 mmol/L (22.0-26.0); BG METHEMOGLOBIN 0.3 % (0.0-1.5); BG OXYGEN SATURATION 97.1 % (92.0-98.5); BG OXYHEMOGLOBIN 96.2 % (94.0-97.0); BG PCO2 52.3 mmHg (35.0-45.0); BG PH 7.434 (7.350-7.450); BG PO2 93.6 mmHg (75.0-100.0); BG PRESSURE SUPPORT 10; BG SAMPLE SITE RIGHT BRACHIAL; BG TOTAL HEMOGLOBIN 12.2 g/dL (12.0-18.0); BG VENT MODE VENT - CPAP
[2018-06-03] MEDS ORDERED: LORAZEPAM 0.5MG TABLET PO PRN (20:30)
[2018-06-03] MEDS ORDERED: LORAZEPAM 2MG/ML CPJ IV PRN (20:45)
[2018-06-03] MEDS: HYDROCODONE/ACETAMINOPHEN 5/325MG TABLET PO PRN (20:48)
[2018-06-03] MEDS: ATORVASTATIN CALCIUM 20MG TABLET PO SCH (21:20)
[2018-06-04] VITALS (48 sets, daily range): BP systolic 69–158; BP diastolic 42–103
[2018-06-04] MEDS: IPRATROPIUM/ALBUTEROL 0.5-3(2.5)MG/3ML NEB HHN SCH ×4 (00:46→20:34)
[2018-06-04] MEDS: ACETYLCYSTEINE 100MG/ML 10% VIAL 4ML INH SCH ×3 (00:47→22:00)
[2018-06-04 07:21] LABS: HEMATOCRIT 33.9 % (36.0-48.0); HEMOGLOBIN 10.9 g/dL (12.0-16.0); MEAN CORPUSCULAR HEMOGLOBIN 28.9 pg (28.0-32.0); MEAN CORPUSCULAR VOLUME 89.7 fL (81.0-99.0); PLATELET 362 x1000/uL (130-400); RED BLOOD CELL COUNT 3.79 mill/uL (4.2-5.4); RED CELL DISTRIBUTION WIDTH 14.8 % (11.6-14.6)
[2018-06-04 07:30] LABS: CHLORIDE 101 mEq/L (98-107)
[2018-06-04 08:36] LABS: BG BASE EXCESS 7.2 mmol/L (-2.0-2.0); BG CARBOXYHEMOGLOBIN 1.1 % (0.5-1.5); BG FRACTION INSPIRED OXYGEN 40; BG HCO3 ACT 32.5 mmol/L (22.0-26.0); BG METHEMOGLOBIN 0.1 % (0.0-1.5); BG OXYHEMOGLOBIN 95.8 % (94.0-97.0); BG PCO2 49.3 mmHg (35.0-45.0); BG PH 7.437 (7.350-7.450); BG PO2 92.2 mmHg (75.0-100.0); BG PRESSURE SUPPORT 10; BG SAMPLE SITE LEFT RADIAL; BG TOTAL HEMOGLOBIN 12.3 g/dL (12.0-18.0); BG VENT MODE VENT - CPAP
[2018-06-04] MEDS: NICOTINE 14MG PATCH TD SCH (08:44)
[2018-06-04] MEDS: PANTOPRAZOLE SODIUM 40 MG/VIAL IV SCH (08:44)
[2018-06-04] MEDS: METHYLPREDNISOLONE SOD SUCC 40 MG/ML VIAL IV SCH (08:44)
[2018-06-04] MEDS: HYDROCODONE/ACETAMINOPHEN 5/325MG TABLET PO PRN ×3 (08:47→17:59)
[2018-06-04] MEDS ORDERED: HYDROCODONE/ACETAMINOPHEN 5/325MG TABLET PO PRN (11:30)
[2018-06-04] MEDS ORDERED: LORAZEPAM 2MG/ML CPJ IV NR ×2 (11:30)
[2018-06-04] MEDS ORDERED: MIDAZOLAM HCL 100 MG in DEXT 5% WATER 80 ML IV PRN (12:45)
[2018-06-04] MEDS: ACETAMINOPHEN 325MG TABLET PO PRN (14:41)
[2018-06-04] MEDS: LORAZEPAM 2MG/ML CPJ IV PRN ×2 (15:11→20:16)
[2018-06-04 15:53] LABS: BG BASE EXCESS 8.1 mmol/L (-2.0-2.0); BG CARBOXYHEMOGLOBIN 0.6 % (0.5-1.5); BG DEOXYHEMOGLOBIN 3.1 % (0.0-5.0); BG FRACTION INSPIRED OXYGEN 40; BG HCO3 ACT 33.9 mmol/L (22.0-26.0); BG METHEMOGLOBIN 0.2 % (0.0-1.5); BG OXYGEN SATURATION 96.9 % (92.0-98.5); BG OXYHEMOGLOBIN 96.1 % (94.0-97.0); BG PCO2 52.3 mmHg (35.0-45.0); BG PH 7.429 (7.350-7.450); BG PO2 91.9 mmHg (75.0-100.0); BG SAMPLE SITE LEFT RADIAL; BG TIDAL VOLUME(mL) 500 mL; BG TOTAL HEMOGLOBIN 12.5 g/dL (12.0-18.0); BG VENT MODE VENT - A/C; BG VENT RATE 12 set
[2018-06-04] MEDS: ENOXAPARIN 40MG/0.4ML SYR SUBCUT SCH (17:37)
[2018-06-04] MEDS: LEVOFLOXACIN 500MG PREMIX 100 ML IV SCH (17:37)
[2018-06-04] MEDS: ATORVASTATIN CALCIUM 20MG TABLET PO SCH (21:23)
[2018-06-04 22:11] LABS: BG BASE EXCESS 8.5 mmol/L (-2.0-2.0); BG CARBOXYHEMOGLOBIN 0.6 % (0.5-1.5); BG DEOXYHEMOGLOBIN 7.7 % (0.0-5.0); BG FRACTION INSPIRED OXYGEN 40; BG HCO3 ACT 33.7 mmol/L (22.0-26.0); BG METHEMOGLOBIN 0.2 % (0.0-1.5); BG OXYGEN SATURATION 92.2 % (92.0-98.5); BG OXYHEMOGLOBIN 91.5 % (94.0-97.0); BG PCO2 49.3 mmHg (35.0-45.0); BG PH 7.453 (7.350-7.450); BG PO2 63.3 mmHg (75.0-100.0); BG PRESSURE SUPPORT 10; BG SAMPLE SITE LEFT FEMORAL; BG TOTAL HEMOGLOBIN 11.8 g/dL (12.0-18.0); BG VENT MODE VENT - CPAP
[2018-06-05] VITALS (52 sets, daily range): BP systolic 77–137; BP diastolic 33–90
[2018-06-05] MEDS: HYDROCODONE/ACETAMINOPHEN 5/325MG TABLET PO PRN ×3 (00:26→09:26)
[2018-06-05] MEDS: IPRATROPIUM/ALBUTEROL 0.5-3(2.5)MG/3ML NEB HHN SCH ×5 (00:43→20:38)
[2018-06-05] MEDS: ACETYLCYSTEINE 100MG/ML 10% VIAL 4ML INH SCH (00:43)
[2018-06-05 05:49] LABS: HEMATOCRIT 37.9 % (36.0-48.0); HEMOGLOBIN 11.7 g/dL (12.0-16.0); MEAN CORPUSCULAR HEMOGLOBIN 28.4 pg (28.0-32.0); MEAN CORPUSCULAR VOLUME 92.2 fL (81.0-99.0); PLATELET 395 x1000/uL (130-400); RED BLOOD CELL COUNT 4.11 mill/uL (4.2-5.4); RED CELL DISTRIBUTION WIDTH 15.1 % (11.6-14.6)
[2018-06-05 06:04] LABS: CHLORIDE 103 mEq/L (98-107)
[2018-06-05] MEDS: LORAZEPAM 2MG/ML CPJ IV PRN ×2 (06:51→10:37)
[2018-06-05 07:35] LABS: BG BASE EXCESS 9.4 mmol/L (-2.0-2.0); BG CPAP (cmH2O) 0 cm(H2O); BG DEOXYHEMOGLOBIN 3.7 % (0.0-5.0); BG HCO3 ACT 35.2 mmol/L (22.0-26.0); BG METHEMOGLOBIN 0.3 % (0.0-1.5); BG OXYGEN SATURATION 96.3 % (92.0-98.5); BG PCO2 53.1 mmHg (35.0-45.0); BG PH 7.439 (7.350-7.450); BG PO2 83.7 mmHg (75.0-100.0); BG SAMPLE SITE RIGHT RADIAL; BG TOTAL HEMOGLOBIN 11.9 g/dL (12.0-18.0); BG VENT MODE VENT - CPAP
[2018-06-05] MEDS: PANTOPRAZOLE SODIUM 40 MG/VIAL IV SCH (09:10)
[2018-06-05] MEDS: METHYLPREDNISOLONE SOD SUCC 40 MG/ML VIAL IV SCH (09:10)
[2018-06-05] MEDS: NICOTINE 14MG PATCH TD SCH (09:11)
[2018-06-05] MEDS: HYDROCODONE/ACETAMINOPHEN 10/325MG TABLET PO PRN ×2 (13:07→19:50)
[2018-06-05] MEDS: METRONIDAZOLE 500MG TABLET PO SCH ×2 (14:10→21:39)
[2018-06-05] MEDS: ACETAMINOPHEN 325MG TABLET PO PRN ×2 (15:07→23:07)
[2018-06-05] MEDS: ENOXAPARIN 40MG/0.4ML SYR SUBCUT SCH (17:22)
[2018-06-05] MEDS: LEVOFLOXACIN 500MG PREMIX 100 ML IV SCH (17:22)
[2018-06-05] MEDS: ATORVASTATIN CALCIUM 20MG TABLET PO SCH (21:39)
[2018-06-05 22:04] LABS: BG BASE EXCESS 7.2 mmol/L (-2.0-2.0); BG CARBOXYHEMOGLOBIN 1.1 % (0.5-1.5); BG DEOXYHEMOGLOBIN 10.8 % (0.0-5.0); BG FRACTION INSPIRED OXYGEN 40; BG HCO3 ACT 32.4 mmol/L (22.0-26.0); BG METHEMOGLOBIN 0.2 % (0.0-1.5); BG OXYGEN SATURATION 89.1 % (92.0-98.5); BG OXYHEMOGLOBIN 87.9 % (94.0-97.0); BG PCO2 48.3 mmHg (35.0-45.0); BG PH 7.444 (7.350-7.450); BG PO2 54.7 mmHg (75.0-100.0); BG SAMPLE SITE LEFT RADIAL; BG TOTAL HEMOGLOBIN 11.9 g/dL (12.0-18.0); BG VENT MODE MASK - AEROSOL
[2018-06-06] VITALS (47 sets, daily range): BP systolic 87–128; BP diastolic 42–108
[2018-06-06] MEDS: IPRATROPIUM/ALBUTEROL 0.5-3(2.5)MG/3ML NEB HHN SCH ×5 (00:30→20:49)
[2018-06-06] MEDS: HYDROCODONE/ACETAMINOPHEN 10/325MG TABLET PO PRN ×4 (02:15→20:18)
[2018-06-06] MEDS: METRONIDAZOLE 500MG TABLET PO SCH ×2 (05:48→14:12)
[2018-06-06] MEDS: ACETAMINOPHEN 325MG TABLET PO PRN ×3 (05:48→22:58)
[2018-06-06 05:49] LABS: CHLORIDE 103 mEq/L (98-107)
[2018-06-06 05:52] LABS: HEMATOCRIT 34.8 % (36.0-48.0); HEMOGLOBIN 11.2 g/dL (12.0-16.0); MEAN CORPUSCULAR HEMOGLOBIN 28.9 pg (28.0-32.0); MEAN CORPUSCULAR VOLUME 89.7 fL (81.0-99.0); PLATELET 386 x1000/uL (130-400); RED BLOOD CELL COUNT 3.87 mill/uL (4.2-5.4); RED CELL DISTRIBUTION WIDTH 15.1 % (11.6-14.6)
[2018-06-06] MEDS: NICOTINE 14MG PATCH TD SCH (08:57)
[2018-06-06 09:19] LABS: BG BASE EXCESS 8.8 mmol/L (-2.0-2.0); BG CARBOXYHEMOGLOBIN 1.5 % (0.5-1.5); BG DEOXYHEMOGLOBIN 2.7 % (0.0-5.0); BG FRACTION INSPIRED OXYGEN 98; BG HCO3 ACT 34.7 mmol/L (22.0-26.0); BG METHEMOGLOBIN 0.2 % (0.0-1.5); BG OXYGEN SATURATION 97.3 % (92.0-98.5); BG OXYHEMOGLOBIN 95.6 % (94.0-97.0); BG PH 7.426 (7.350-7.450); BG PO2 92.6 mmHg (75.0-100.0); BG SAMPLE SITE RIGHT RADIAL; BG TOTAL HEMOGLOBIN 11.7 g/dL (12.0-18.0); BG VENT MODE MASK - AEROSOL
[2018-06-06] MEDS ORDERED: LIDOCAINE HCL 1% 20ML VIAL (Pyxis) INJ ONE (11:36)
[2018-06-06] MEDS: PANTOPRAZOLE SODIUM 40 MG/VIAL IV SCH (12:17)
[2018-06-06] MEDS: METHYLPREDNISOLONE SOD SUCC 40 MG/ML VIAL IV SCH (12:18)
[2018-06-06] MEDS: LORAZEPAM 2MG/ML CPJ IV PRN ×2 (12:18→20:36)
[2018-06-06] MEDS: LEVOFLOXACIN 500MG PREMIX 100 ML IV SCH (17:11)
[2018-06-06] MEDS: ENOXAPARIN 40MG/0.4ML SYR SUBCUT SCH (17:11)
[2018-06-06] MEDS ORDERED: GENTAMICIN 100MG PREMIX 100 ML IV SCH (18:30)
[2018-06-06] MEDS ORDERED: POTASSIUM CHLORIDE 10MEQ TABLET SR PO SCH (18:30)
[2018-06-06] MEDS ORDERED: POTASSIUM CHLORIDE 20MEQ/PACKET NG NR (18:45)
[2018-06-06] MEDS: ATORVASTATIN CALCIUM 20MG TABLET PO SCH (20:17)
[2018-06-06] MEDS ORDERED: GENTAMICIN 120MG PREMIX 100 ML IV NR (20:30)
[2018-06-07] VITALS (27 sets, daily range): BP systolic 63–142; BP diastolic 23–86
[2018-06-07] MEDS: IPRATROPIUM/ALBUTEROL 0.5-3(2.5)MG/3ML NEB HHN SCH ×5 (00:45→18:44)
[2018-06-07] MEDS: HYDROCODONE/ACETAMINOPHEN 10/325MG TABLET PO PRN ×3 (02:30→23:23)
[2018-06-07] MEDS: LORAZEPAM 2MG/ML CPJ IV PRN ×4 (04:15→21:46)
[2018-06-07 05:28] LABS: BASOPHILS % 0.1 % (0.0-2.0); EOSINOPHILS % 0.3 % (0.0-5.0); HEMATOCRIT. 36.5 % (36.0-48.0); HEMOGLOBIN. 11.3 g/dL (12.0-16.0); LYMPHOCYTES % 25.7 % (20.0-50.0); MEAN CORPUSCULAR VOLUME 93.7 fL (81.0-99.0); MEAN PLATELET VOLUME 7.6 fl (7.4-10.4); MONOCYTES % 9.5 % (2.0-8.0); NEUTROPHILS % 64.4 % (40.0-76.0); PLATELET 380 x1000/uL (130-400); RED BLOOD CELL COUNT 3.89 mill/uL (4.2-5.4); RED CELL DISTRIBUTION WIDTH 15.2 % (11.6-14.6)
[2018-06-07 05:34] LABS: CHLORIDE 102 mEq/L (98-107)
[2018-06-07] MEDS: PANTOPRAZOLE SODIUM 40 MG/VIAL IV SCH (08:22)
[2018-06-07] MEDS: METHYLPREDNISOLONE SOD SUCC 40 MG/ML VIAL IV SCH (08:22)
[2018-06-07] MEDS: GENTAMICIN SULFATE 140 MG in SODIUM CHLORIDE 0.9% 100 ML IV SCH ×2 (08:25→20:45)
[2018-06-07] MEDS: NICOTINE 14MG PATCH TD SCH (08:26)
[2018-06-07] MEDS: LEVOFLOXACIN 500MG PREMIX 100 ML IV SCH (17:55)
[2018-06-07] MEDS: ENOXAPARIN 40MG/0.4ML SYR SUBCUT SCH (17:56)
[2018-06-07] MEDS: ATORVASTATIN CALCIUM 20MG TABLET PO SCH (20:45)
[2018-06-07] MEDS: PREDNISONE 10MG TABLET PO SCH (20:45)
[2018-06-08] VITALS (12 sets, daily range): BP systolic 92–129; BP diastolic 24–70
[2018-06-08] MEDS: IPRATROPIUM/ALBUTEROL 0.5-3(2.5)MG/3ML NEB HHN SCH ×3 (00:25→20:10)
[2018-06-08] MEDS: LORAZEPAM 2MG/ML CPJ IV PRN ×3 (03:31→21:42)
[2018-06-08] MEDS: IPRATROPIUM/ALBUTEROL 0.5-3(2.5)MG/3ML NEB HHN PRN (03:40)
[2018-06-08 07:28] LABS: BG CARBOXYHEMOGLOBIN 0.7 % (0.5-1.5); BG DEOXYHEMOGLOBIN 2.4 % (0.0-5.0); BG FRACTION INSPIRED OXYGEN 45; BG HCO3 ACT 33.5 mmol/L (22.0-26.0); BG METHEMOGLOBIN 0.2 % (0.0-1.5); BG OXYGEN SATURATION 97.6 % (92.0-98.5); BG OXYHEMOGLOBIN 96.7 % (94.0-97.0); BG PCO2 45.7 mmHg (35.0-45.0); BG PH 7.483 (7.350-7.450); BG PO2 97.7 mmHg (75.0-100.0); BG PRESSURE SUPPORT 10; BG SAMPLE SITE RIGHT RADIAL; BG TOTAL HEMOGLOBIN 11.9 g/dL (12.0-18.0); BG VENT MODE VENT - CPAP
[2018-06-08] MEDS: PREDNISONE 10MG TABLET PO SCH (08:07)
[2018-06-08] MEDS: PANTOPRAZOLE SODIUM 40 MG/VIAL IV SCH (08:16)
[2018-06-08] MEDS: GENTAMICIN SULFATE 140 MG in SODIUM CHLORIDE 0.9% 100 ML IV SCH (08:17)
[2018-06-08] MEDS: NICOTINE 14MG PATCH TD SCH (08:18)
[2018-06-08] MEDS: HYDROCODONE/ACETAMINOPHEN 10/325MG TABLET PO PRN ×2 (10:14→16:47)
[2018-06-08] MEDS: ACETAMINOPHEN 325MG TABLET PO PRN (12:26)
[2018-06-08 14:45] LABS: BG BASE EXCESS 3.7 mmol/L (-2.0-2.0); BG CARBOXYHEMOGLOBIN 0.4 % (0.5-1.5); BG DEOXYHEMOGLOBIN 2.3 % (0.0-5.0); BG FRACTION INSPIRED OXYGEN 60; BG HCO3 ACT 29.6 mmol/L (22.0-26.0); BG METHEMOGLOBIN 0.3 % (0.0-1.5); BG OXYGEN SATURATION 97.7 % (92.0-98.5); BG PCO2 50.7 mmHg (35.0-45.0); BG PH 7.384 (7.350-7.450); BG PO2 109.1 mmHg (75.0-100.0); BG SAMPLE SITE RIGHT RADIAL; BG TOTAL HEMOGLOBIN 11.9 g/dL (12.0-18.0); BG VENT MODE MASK - AEROSOL
[2018-06-08] MEDS ORDERED: LIDOCAINE HCL/PF 1% 2ML VIAL ONE (15:03)
[2018-06-08] MEDS: LEVOFLOXACIN 500MG PREMIX 100 ML IV SCH (16:45)
[2018-06-08] MEDS: ENOXAPARIN 40MG/0.4ML SYR SUBCUT SCH (16:45)
[2018-06-08] MEDS ORDERED: GENTAMICIN 100MG PREMIX 50 ML IV SCH (18:00)
[2018-06-08] MEDS ORDERED: DEXT 5%/0.45% NACL 1000ML 1,000 ML IV SCH (19:00)
[2018-06-08] MEDS: ATORVASTATIN CALCIUM 20MG TABLET PO SCH (21:42)
[2018-06-08] MEDS ORDERED: IOHEXOL-350 100 ML BOTTLE ONE (22:25)
[2018-06-09] VITALS (12 sets, daily range): BP systolic 92–115; BP diastolic 22–83
[2018-06-09] MEDS: HYDROCODONE/ACETAMINOPHEN 10/325MG TABLET PO PRN ×4 (00:37→21:28)
[2018-06-09] MEDS: LORAZEPAM 2MG/ML CPJ IV PRN (05:54)
[2018-06-09 07:36] LABS: HEMATOCRIT 33.4 % (36.0-48.0); HEMOGLOBIN 10.6 g/dL (12.0-16.0); MEAN CORPUSCULAR HEMOGLOBIN 28.9 pg (28.0-32.0); MEAN CORPUSCULAR VOLUME 90.8 fL (81.0-99.0); PLATELET 355 x1000/uL (130-400); RED BLOOD CELL COUNT 3.68 mill/uL (4.2-5.4); RED CELL DISTRIBUTION WIDTH 14.5 % (11.6-14.6)
[2018-06-09 07:51] LABS: CHLORIDE 100 mEq/L (98-107)
[2018-06-09] MEDS: IPRATROPIUM/ALBUTEROL 0.5-3(2.5)MG/3ML NEB HHN SCH ×4 (08:12→23:11)
[2018-06-09] MEDS: PANTOPRAZOLE SODIUM 40 MG/VIAL IV SCH (08:55)
[2018-06-09 08:58] LABS: BG BASE EXCESS 7.6 mmol/L (-2.0-2.0); BG CARBOXYHEMOGLOBIN 0.5 % (0.5-1.5); BG DEOXYHEMOGLOBIN 8.2 % (0.0-5.0); BG HCO3 ACT 33.4 mmol/L (22.0-26.0); BG METHEMOGLOBIN 0.2 % (0.0-1.5); BG OXYGEN SATURATION 91.7 % (92.0-98.5); BG OXYHEMOGLOBIN 91.1 % (94.0-97.0); BG PCO2 52.6 mmHg (35.0-45.0); BG PO2 64.3 mmHg (75.0-100.0); BG SAMPLE SITE RIGHT RADIAL; BG TOTAL HEMOGLOBIN 11.6 g/dL (12.0-18.0); BG VENT MODE NASAL CANNULA
[2018-06-09] MEDS: NICOTINE 14MG PATCH TD SCH (09:05)
[2018-06-09] MEDS: PREDNISONE 10MG TABLET PO SCH (09:05)
[2018-06-09] MEDS ORDERED: LIDOCAINE HCL/PF 1% 2ML VIAL ONE (13:48)
[2018-06-09] MEDS: ACETAMINOPHEN 325MG TABLET PO PRN (14:49)
[2018-06-09] MEDS: LEVOFLOXACIN 500MG PREMIX 100 ML IV SCH (17:11)
[2018-06-09] MEDS: METHYLPREDNISOLONE SOD SUCC 40 MG/ML VIAL IV SCH (17:11)
[2018-06-09] MEDS: ENOXAPARIN 40MG/0.4ML SYR SUBCUT SCH (17:11)
[2018-06-09] MEDS: IPRATROPIUM/ALBUTEROL 0.5-3(2.5)MG/3ML NEB HHN PRN (18:48)
[2018-06-09] MEDS: ATORVASTATIN CALCIUM 20MG TABLET PO SCH (21:26)
[2018-06-09] MEDS: BUDESONIDE 0.5MG/2ML NEB HHN SCH (23:11)
[2018-06-10] VITALS (11 sets, daily range): BP systolic 92–119; BP diastolic 57–81
[2018-06-10] MEDS: LORAZEPAM 2MG/ML CPJ IV PRN ×4 (00:05→13:01)
[2018-06-10] MEDS: IPRATROPIUM/ALBUTEROL 0.5-3(2.5)MG/3ML NEB HHN SCH ×4 (04:38→16:18)
[2018-06-10] MEDS: PANTOPRAZOLE SODIUM 40 MG/VIAL IV SCH (08:09)
[2018-06-10] MEDS: METHYLPREDNISOLONE SOD SUCC 40 MG/ML VIAL IV SCH ×2 (08:09→16:43)
[2018-06-10] MEDS: NICOTINE 14MG PATCH TD SCH (08:10)
[2018-06-10] MEDS: HYDROCODONE/ACETAMINOPHEN 10/325MG TABLET PO PRN (08:13)
[2018-06-10 08:26] LABS: HEMATOCRIT 31.6 % (36.0-48.0); HEMOGLOBIN 10.4 g/dL (12.0-16.0); MEAN CORPUSCULAR HEMOGLOBIN 29.5 pg (28.0-32.0); MEAN CORPUSCULAR VOLUME 89.7 fL (81.0-99.0); PLATELET 334 x1000/uL (130-400); RED BLOOD CELL COUNT 3.52 mill/uL (4.2-5.4); RED CELL DISTRIBUTION WIDTH 14.8 % (11.6-14.6)
[2018-06-10 08:43] LABS: CHLORIDE 98 mEq/L (98-107)
[2018-06-10] MEDS: BUDESONIDE 0.5MG/2ML NEB HHN SCH (09:29)
[2018-06-10 09:40] LABS: BG BASE EXCESS 9.8 mmol/L (-2.0-2.0); BG CARBOXYHEMOGLOBIN 0.5 % (0.5-1.5); BG DEOXYHEMOGLOBIN 5.5 % (0.0-5.0); BG FRACTION INSPIRED OXYGEN 32; BG HCO3 ACT 35.4 mmol/L (22.0-26.0); BG METHEMOGLOBIN 0.2 % (0.0-1.5); BG OXYGEN SATURATION 94.5 % (92.0-98.5); BG OXYHEMOGLOBIN 93.8 % (94.0-97.0); BG PCO2 52.6 mmHg (35.0-45.0); BG PH 7.446 (7.350-7.450); BG PO2 73.6 mmHg (75.0-100.0); BG SAMPLE SITE RIGHT RADIAL; BG TOTAL HEMOGLOBIN 11.6 g/dL (12.0-18.0); BG VENT MODE NASAL CANNULA
[2018-06-10] MEDS ORDERED: HYDROCODONE/ACETAMINOPHEN 10/325MG TABLET PO PRN (15:15)
[2018-06-10] MEDS: LEVOFLOXACIN 500MG PREMIX 100 ML IV SCH (16:43)
[2018-06-10] MEDS ORDERED: ENOXAPARIN 40MG/0.4ML SYR SUBCUT SCH (21:00)
== END 2018-06-10 19:10 | disposition home or self-care (01) | DRG 207 ==
LOC: ER 11:19 → EDBEDREQ 13:35 → EDBEDREQSVC 13:50 → EDBEDREQ 13:52 → ENRESERV 14:03 → EDBEDREQ 14:32 → MICUSO 14:34 → 5EST 06-07 11:05
PROVIDERS: ADMIT Internal Medicine; ATTEND Internal Medicine
PROC: 5A1955Z Respiratory Ventilation, Greater than 96 Consecutive Hours (ICD-10-PCS; principal; 2018-05-27)
PROC: 5A09357 Assistance with Respiratory Ventilation, Less than 24 Consecutive Hours, Continuous Positive Airway Pressure (ICD-10-PCS; 2018-05-27)
PROC: 0BH18EZ Insertion of Endotracheal Airway into Trachea, Via Natural or Artificial Opening Endoscopic (ICD-10-PCS; 2018-05-27)
PROC: 02HV33Z Insertion of Infusion Device into Superior Vena Cava, Percutaneous Approach (ICD-10-PCS; 2018-06-06)
PROC: B548ZZA Ultrasonography of Superior Vena Cava, Guidance (ICD-10-PCS; 2018-06-06)
DX: J96.02 Acute respiratory failure with hypercapnia (principal); J18.9 Pneumonia, unspecified organism; E44.1 Mild protein-calorie malnutrition; J44.1 Chronic obstructive pulmonary disease with (acute) exacerbation; J45.901 Unspecified asthma with (acute) exacerbation; G93.40 Encephalopathy, unspecified; F11.20 Opioid dependence, uncomplicated; J44.0 Chronic obstructive pulmonary disease with (acute) lower respiratory infection; E87.2 Acidosis; M87.28 Osteonecrosis due to previous trauma, other site; A04.72 Enterocolitis due to Clostridium difficile, not specified as recurrent; E78.1 Pure hyperglyceridemia; E83.39 Other disorders of phosphorus metabolism; F12.90 Cannabis use, unspecified, uncomplicated; I10 Essential (primary) hypertension; F17.210 Nicotine dependence, cigarettes, uncomplicated; F41.9 Anxiety disorder, unspecified; R73.9 Hyperglycemia, unspecified; F19.10 Other psychoactive substance abuse, uncomplicated; T41.295A Adverse effect of other general anesthetics, initial encounter; R19.7 Diarrhea, unspecified; T38.0X5A Adverse effect of glucocorticoids and synthetic analogues, initial encounter; Y92.89 Other specified places as the place of occurrence of the external cause; Z86.718 Personal history of other venous thrombosis and embolism; Z87.81 Personal history of (healed) traumatic fracture; Z99.3 Dependence on wheelchair; Z99.81 Dependence on supplemental oxygen; Z88.0 Allergy status to penicillin; Z88.1 Allergy status to other antibiotic agents; Z71.6 Tobacco abuse counseling; Z78.1 Physical restraint status
CPT/HCPCS: 31500; 36415; 36569; 36600; 71045; 71275; 76937; 80048; 80061; 80170; 80305; 82375; 82805; 82962; 83036; 83605; 83735; 83880; 84100; 84443; 84478; 84484; 85027; 87070; 87804; 92610; 93005; 93970; 94002; 94003; 94640; 94660; 96365; 96366; 96372; 97110; 97163; 97530; 99291; C1725; C9113; J0330; J1580; J1650; J1940; J1956; J2060; J2250; J2704; J2920; J2930; J3010; J3475; J3490; J7030; J7040; J7050; J7060; J7070; J7512; J7608; J7611; J7620; J7626; Q9967; A4315

== ENCOUNTER 2019-05-17 12:07 | Inpatient (IN) | payer OTHER, MEDICAID ==
[~2019-05-17] VITALS: Ht 165.1 cm; Wt 66.0 kg
[2019-05-17] MEDS ORDERED: IPRATROPIUM BROMIDE (0.02%) 0.5MG/2.5ML NEB HHN STA (12:09)
[2019-05-17] MEDS ORDERED: METHYLPREDNISOLONE SOD SUCC 125 MG/2 ML VIAL IV STA (12:09)
[2019-05-17] MEDS ORDERED: MAGNESIUM 2 G PREMIX 50 ML IV ONE (12:15)
[2019-05-17 12:54] LABS: BASOPHILS % 0.3 % (0.0-2.0); CHLORIDE 97 mEq/L (98-107); EOSINOPHILS % 0.3 % (0.0-5.0); HEMATOCRIT. 33.7 % (36.0-48.0); HEMOGLOBIN. 10.8 g/dL (12.0-16.0); LYMPHOCYTES % 18.2 % (20.0-50.0); MEAN CORPUSCULAR HEMOGLOBIN 28.4 pg (28.0-32.0); MEAN CORPUSCULAR VOLUME 88.8 fL (81.0-99.0); MEAN PLATELET VOLUME 8.2 fl (7.4-10.4); MONOCYTES % 11.5 % (2.0-8.0); NEUTROPHILS % 69.7 % (40.0-76.0); PLATELET 315 x1000/uL (130-400); RED CELL DISTRIBUTION WIDTH 15.1 % (11.6-14.6)
[2019-05-17 14:01] LABS: BG BASE EXCESS 7.4 mmol/L (-2.0-2.0); BG BILEVEL POS AIRWAY PRESSURE 16/6; BG CARBOXYHEMOGLOBIN 0.7 % (0.5-1.5); BG DEOXYHEMOGLOBIN 3.7 % (0.0-5.0); BG FRACTION INSPIRED OXYGEN 50; BG HCO3 ACT 35.5 mmol/L (22.0-26.0); BG METHEMOGLOBIN 0.3 % (0.0-1.5); BG OXYGEN SATURATION 96.3 % (92.0-98.5); BG OXYHEMOGLOBIN 95.3 % (94.0-97.0); BG PCO2 70.8 mmHg (35.0-45.0); BG PH 7.318 (7.350-7.450); BG PO2 92.4 mmHg (75.0-100.0); BG SAMPLE SITE RIGHT BRACHIAL; BG TOTAL HEMOGLOBIN 11.2 g/dL (12.0-18.0); BG VENT MODE MASK - BIPAP
[2019-05-17] MEDS: ALBUTEROL (0.083%) 2.5MG/3ML NEB HHN SCH ×3 (14:55→15:59)
[2019-05-17] MEDS ORDERED: CLONIDINE 0.1MG TABLET PO PRN (16:15)
[2019-05-17] MEDS ORDERED: HYDROCODONE/ACETAMINOPHEN 5/325MG TABLET PO PRN (16:15)
[2019-05-17] MEDS ORDERED: IPRATROPIUM/ALBUTEROL 0.5-3(2.5)MG/3ML NEB NEB PRN (16:15)
[2019-05-17] MEDS ORDERED: ACETAMINOPHEN 650MG SUPP PR PRN (16:15)
[2019-05-17] MEDS ORDERED: NA PHOS,M-B/NA PHOS,DI-BA ENEMA 118ML PR PRN (16:15)
[2019-05-17] MEDS ORDERED: DIPHENHYDRAMINE 50MG/ML VIAL IV PRN (16:15)
[2019-05-17] MEDS ORDERED: DOCUSATE SODIUM 100MG CAPSULE PO PRN (16:15)
[2019-05-17] MEDS ORDERED: MAGNESIUM/ALUMINUM HYDROXIDE/SIMETHICONE 30ML UDC PO PRN (16:15)
[2019-05-17] MEDS ORDERED: DEXTROSE 50% WATER 50ML SYRINGE IV PRN (16:15)
[2019-05-17] MEDS ORDERED: ONDANSETRON HCL 4MG/2ML INJ IV PRN (16:15)
[2019-05-17] MEDS ORDERED: LORAZEPAM 0.5MG TABLET PO PRN (16:15)
[2019-05-17] MEDS ORDERED: ACETAMINOPHEN 325MG TABLET PO PRN (16:15)
[2019-05-17] MEDS ORDERED: GUAIFENESIN 200MG/10ML SUGAR FREE UDC PO PRN (16:15)
[2019-05-17 16:30] VITALS: BP 127/85
[2019-05-17 16:45] VITALS: BP 127/85
[2019-05-17 16:51] LABS: BG BASE EXCESS 4.7 mmol/L (-2.0-2.0); BG BILEVEL POS AIRWAY PRESSURE 16/6; BG CARBOXYHEMOGLOBIN 0.6 % (0.5-1.5); BG DEOXYHEMOGLOBIN 1.4 % (0.0-5.0); BG FRACTION INSPIRED OXYGEN 50; BG HCO3 ACT 33.3 mmol/L (22.0-26.0); BG METHEMOGLOBIN 0.1 % (0.0-1.5); BG OXYGEN SATURATION 98.6 % (92.0-98.5); BG OXYHEMOGLOBIN 97.9 % (94.0-97.0); BG PCO2 73.1 mmHg (35.0-45.0); BG PH 7.276 (7.350-7.450); BG PO2 141.6 mmHg (75.0-100.0); BG SAMPLE SITE RIGHT BRACHIAL; BG TOTAL HEMOGLOBIN 11.1 g/dL (12.0-18.0); BG VENT MODE MASK - BIPAP
[2019-05-17] MEDS: ENOXAPARIN 40MG/0.4ML SYR SUBCUT SCH (17:56)
[2019-05-17] MEDS: FAMOTIDINE 20MG/2ML VIAL IV SCH (17:56)
[2019-05-17] MEDS: METHYLPREDNISOLONE SOD SUCC 40 MG/ML VIAL IV SCH (17:56)
[2019-05-17 18:00] VITALS: BP 123/77
[2019-05-17] MEDS: INSULIN LISPRO 100 UNITS/ML SUBCUT SCH ×2 (18:00→21:00)
[2019-05-17] MEDS ORDERED: LEVOFLOXACIN 750MG PREMIX 150 ML IV NR (18:00)
[2019-05-17] MEDS: BLOOD SUGAR DIAGNOSTIC STRIP TEST SCH ×2 (18:10→21:23)
[2019-05-17 20:00] VITALS: BP 106/82
[2019-05-17] MEDS: DILTIAZEM HCL 30MG TABLET PO SCH (21:25)
[2019-05-17] MEDS: IPRATROPIUM/ALBUTEROL 0.5-3(2.5)MG/3ML NEB NEB SCH (21:29)
[2019-05-17 22:00] VITALS: BP 119/81
[2019-05-17 23:26] LABS: CREATINE KINASE 496 IU/L (26-192)
[2019-05-17 23:28] LABS: CREATINE KINASE MB FRACTION 3.5 ng/mL (0.5-3.6)
[2019-05-18] VITALS (12 sets, daily range): BP systolic 109–155; BP diastolic 71–103
[2019-05-18] MEDS: METHYLPREDNISOLONE SOD SUCC 40 MG/ML VIAL IV SCH ×3 (00:20→17:47)
[2019-05-18] MEDS: IPRATROPIUM/ALBUTEROL 0.5-3(2.5)MG/3ML NEB NEB SCH ×5 (00:54→20:40)
[2019-05-18] MEDS: MORPHINE SULFATE 2 MG/ML CPJ (NOT FOR IM USE) IV PRN ×5 (00:58→22:47)
[2019-05-18] MEDS: DILTIAZEM HCL 30MG TABLET PO SCH ×3 (05:22→21:48)
[2019-05-18] MEDS: BLOOD SUGAR DIAGNOSTIC STRIP TEST SCH ×4 (07:30→21:55)
[2019-05-18] MEDS: INSULIN LISPRO 100 UNITS/ML SUBCUT SCH ×4 (08:00→21:00)
[2019-05-18 08:17] LABS: CLARITY URINE CLOUDY (CLEAR); COLOR URINE YELLOW (YELLOW); KETONES URINE 4+ (NEGATIVE); LEUKOCYTE ESTERASE URINE NEGATIVE (NEGATIVE); NITRITE URINE NEGATIVE (NEGATIVE); OCCULT BLOOD URINE NEGATIVE (NEGATIVE); PROTEIN URINE 2+ (NEGATIVE); SPECIFIC GRAVITY URINE 1.023 (1.005-1.030); UROBILINOGEN URINE 0.2 E.U./dL (0.2-1.0)
[2019-05-18 08:24] LABS: BG BILEVEL POS AIRWAY PRESSURE 20/5; BG DEOXYHEMOGLOBIN 2.3 % (0.0-5.0); BG FRACTION INSPIRED OXYGEN 40; BG METHEMOGLOBIN 0.2 % (0.0-1.5); BG OXYGEN SATURATION 97.7 % (92.0-98.5); BG OXYHEMOGLOBIN 97.5 % (94.0-97.0); BG PCO2 57.3 mmHg (35.0-45.0); BG PH 7.416 (7.350-7.450); BG PO2 112.2 mmHg (75.0-100.0); BG SAMPLE SITE LEFT RADIAL; BG TOTAL HEMOGLOBIN 9.8 g/dL (12.0-18.0); BG VENT MODE MASK - BIPAP
[2019-05-18] MEDS: FAMOTIDINE 20MG/2ML VIAL IV SCH (08:37)
[2019-05-18 09:11] LABS: *AMPHETAMINES SCREEN URINE NEGATIVE (NEGATIVE); *BARBITURATES SCREEN URINE NEGATIVE (NEGATIVE); *BENZODIAZEPINES SCREEN URINE NEGATIVE (NEGATIVE); *COCAINE SCREEN URINE NEGATIVE (NEGATIVE); METHADONE URINE SCREEN NEGATIVE (NEGATIVE); OPIATES URINE SCREEN PRESUMTIVE POSITIVE (NEGATIVE)
[2019-05-18 09:12] LABS: CANNABINOID URINE SCREEN PRESUMTIVE POSITIVE (NEGATIVE); PHENCYCLIDINE URINE SCREEN NEGATIVE (NEGATIVE)
[2019-05-18 09:36] LABS: BASOPHILS % 0.3 % (0.0-2.0); HEMATOCRIT. 31.1 % (36.0-48.0); HEMOGLOBIN. 9.7 g/dL (12.0-16.0); LYMPHOCYTES % 9.1 % (20.0-50.0); MEAN CORPUSCULAR HEMOGLOBIN 27.5 pg (28.0-32.0); MEAN CORPUSCULAR VOLUME 88.2 fL (81.0-99.0); MEAN PLATELET VOLUME 8.1 fl (7.4-10.4); MONOCYTES % 3.8 % (2.0-8.0); NEUTROPHILS % 86.8 % (40.0-76.0); PLATELET 310 x1000/uL (130-400); RED BLOOD CELL COUNT 3.53 mill/uL (4.2-5.4); RED CELL DISTRIBUTION WIDTH 15.2 % (11.6-14.6)
[2019-05-18 09:44] LABS: CHLORIDE 97 mEq/L (98-107)
[2019-05-18 09:53] LABS: CREATINE KINASE 447 IU/L (26-192); LDL CHOLESTEROL 91 mg/dL (5-100)
[2019-05-18 09:54] LABS: CREATINE KINASE MB FRACTION 4.7 ng/mL (0.5-3.6); HDL CHOLESTEROL 60 mg/dL (40-59); T4 FREE 1.22 ng/dL (0.76-1.46)
[2019-05-18] MEDS: LORAZEPAM 2MG/ML CPJ IV PRN (13:48)
[2019-05-18] MEDS ORDERED: LEVOFLOXACIN 500MG PREMIX 100 ML IV SCH (14:00)
[2019-05-18] MEDS: ENOXAPARIN 40MG/0.4ML SYR SUBCUT SCH (17:48)
[2019-05-18] MEDS: BUDESONIDE 0.5MG/2ML NEB HHN SCH (20:40)
[2019-05-19] VITALS: BP 130/88
[2019-05-19] MEDS ORDERED: LEVOFLOXACIN 500MG PREMIX 100 ML IV SCH
[2019-05-19] MEDS: METHYLPREDNISOLONE SOD SUCC 40 MG/ML VIAL IV SCH ×3 (00:13→16:06)
[2019-05-19] MEDS: LORAZEPAM 2MG/ML CPJ IV PRN ×3 (00:15→14:00)
[2019-05-19] MEDS: IPRATROPIUM/ALBUTEROL 0.5-3(2.5)MG/3ML NEB NEB SCH ×5 (00:27→16:26)
[2019-05-19 02:00] VITALS: BP 110/64
[2019-05-19 04:00] VITALS: BP 117/78
[2019-05-19] MEDS: MORPHINE SULFATE 2 MG/ML CPJ (NOT FOR IM USE) IV PRN ×2 (04:02→10:49)
[2019-05-19] MEDS: DILTIAZEM HCL 30MG TABLET PO SCH ×2 (05:31→08:20)
[2019-05-19 06:00] VITALS: BP 111/76
[2019-05-19 07:13] LABS: HEMATOCRIT. 30.3 % (36.0-48.0); HEMOGLOBIN. 9.6 g/dL (12.0-16.0); MEAN CORPUSCULAR HEMOGLOBIN 27.6 pg (28.0-32.0); MEAN CORPUSCULAR VOLUME 87.6 fL (81.0-99.0); MEAN PLATELET VOLUME 7.9 fl (7.4-10.4); PLATELET 357 x1000/uL (130-400); RED BLOOD CELL COUNT 3.46 mill/uL (4.2-5.4); RED CELL DISTRIBUTION WIDTH 15.3 % (11.6-14.6)
[2019-05-19 07:28] LABS: CHLORIDE 96 mEq/L (98-107)
[2019-05-19] MEDS: BLOOD SUGAR DIAGNOSTIC STRIP TEST SCH ×3 (07:56→16:31)
[2019-05-19] MEDS: INSULIN LISPRO 100 UNITS/ML SUBCUT SCH ×2 (07:56→12:55)
[2019-05-19] MEDS: FAMOTIDINE 20MG/2ML VIAL IV SCH (08:20)
[2019-05-19] MEDS: BUDESONIDE 0.5MG/2ML NEB HHN SCH (08:42)
[2019-05-19 10:27] LABS: PLATELET ESTIMATE NORMAL
[2019-05-19 12:21] LABS: BG BASE EXCESS 10.3 mmol/L (-2.0-2.0); BG BILEVEL POS AIRWAY PRESSURE 20/5; BG CARBOXYHEMOGLOBIN 0.3 % (0.5-1.5); BG DEOXYHEMOGLOBIN 1.4 % (0.0-5.0); BG FRACTION INSPIRED OXYGEN 40; BG HCO3 ACT 36.5 mmol/L (22.0-26.0); BG METHEMOGLOBIN 0.1 % (0.0-1.5); BG OXYGEN SATURATION 98.6 % (92.0-98.5); BG OXYHEMOGLOBIN 98.2 % (94.0-97.0); BG PCO2 58.4 mmHg (35.0-45.0); BG PH 7.414 (7.350-7.450); BG SAMPLE SITE RIGHT RADIAL; BG TOTAL HEMOGLOBIN 10.2 g/dL (12.0-18.0); BG VENT MODE MASK - BIPAP
[2019-05-19 14:00] VITALS: BP 101/68
[2019-05-19] MEDS ORDERED: ALBU05 NEB (15:31)
[2019-05-19] MEDS ORDERED: FAMO-135 MT (15:31)
[2019-05-19] MEDS ORDERED: P20 MT (15:31)
[2019-05-19] MEDS ORDERED: PRED10TA MT (15:31)
[2019-05-19] MEDS ORDERED: PULM50 NEB (15:31)
[2019-05-19] MEDS ORDERED: DILT30TA38 MT (15:31)
[2019-05-19] MEDS ORDERED: P20 PO (15:31)
[2019-05-19] MEDS ORDERED: LEVO500T2 MT (15:31)
[2019-05-19] MEDS: ENOXAPARIN 40MG/0.4ML SYR SUBCUT SCH (16:06)
[2019-05-19 16:36] VITALS: BP 146/90
== END 2019-05-19 17:40 | disposition home or self-care (01) | DRG 871 ==
LOC: ER 12:07 → 5EST 13:43 → ENRESERV 15:26 → 5EST 05-18 02:08
PROVIDERS: ADMIT Internal Medicine; ATTEND Internal Medicine
PROC: 5A09357 Assistance with Respiratory Ventilation, Less than 24 Consecutive Hours, Continuous Positive Airway Pressure (ICD-10-PCS; principal; 2019-05-17)
PROC: 5A09457 Assistance with Respiratory Ventilation, 24-96 Consecutive Hours, Continuous Positive Airway Pressure (ICD-10-PCS; 2019-05-18)
DX: A41.9 Sepsis, unspecified organism (principal); J18.9 Pneumonia, unspecified organism; J96.02 Acute respiratory failure with hypercapnia; J44.1 Chronic obstructive pulmonary disease with (acute) exacerbation; J45.901 Unspecified asthma with (acute) exacerbation; N39.0 Urinary tract infection, site not specified; M87.9 Osteonecrosis, unspecified; E87.2 Acidosis; F11.20 Opioid dependence, uncomplicated; J44.0 Chronic obstructive pulmonary disease with (acute) lower respiratory infection; I10 Essential (primary) hypertension; D64.9 Anemia, unspecified; R73.9 Hyperglycemia, unspecified; E78.5 Hyperlipidemia, unspecified; F41.0 Panic disorder [episodic paroxysmal anxiety]; Z86.718 Personal history of other venous thrombosis and embolism; Z87.891 Personal history of nicotine dependence; Z88.0 Allergy status to penicillin; Z88.1 Allergy status to other antibiotic agents
CPT/HCPCS: 36415; 36600; 71045; 80048; 80061; 80305; 81003; 82375; 82550; 82553; 82805; 82962; 83880; 84439; 84443; 84484; 87070; 87804; 93005; 93306; 93970; 94640; 94660; 96365; 97162; 99291; C1893; J1650; J1956; J2060; J2270; J2920; J2930; J3475; J3490; J7611; J7620; J7626

== ENCOUNTER 2020-04-11 11:00 | Inpatient (IN) | payer OTHER, MEDICAID ==
[~2020-04-11] VITALS: Ht 157.5 cm; Wt 54.4 kg
[~2020-04-11 11:00] MED LIST changes: +ALBU05 NEB; +ATOR10TA MT; +DILT30TA38 MT; +FAMO-135 MT; +LEVO500T2 PO; -MONT10TA24 PO; +MONT10TA26 PO; +MORP15TA54 MT; +P20 PO; +PULM50 NEB
[2020-04-11] MEDS ORDERED: MORPHINE SULFATE 4 MG/ML CPJ (NOT FOR IM USE) IV STA (11:32)
[2020-04-11] MEDS ORDERED: ONDANSETRON HCL 4MG/2ML INJ IV STA (11:32)
[2020-04-11] MEDS ORDERED: SODIUM CHLORIDE 0.9% 1,000 ML IV ONE (11:45)
[2020-04-11 12:48] LABS: HEMATOCRIT. 29.3 % (36.0-48.0); HEMOGLOBIN. 9.3 g/dL (12.0-16.0); MEAN CORPUSCULAR HEMOGLOBIN 27.9 pg (28.0-32.0); MEAN CORPUSCULAR VOLUME 87.6 fL (81.0-99.0); PLATELET 512 x1000/uL (130-400); RED BLOOD CELL COUNT 3.35 mill/uL (4.2-5.4); RED CELL DISTRIBUTION WIDTH 16.5 % (11.6-14.6)
[2020-04-11 12:56] LABS: CHLORIDE 101 mEq/L (98-107)
[2020-04-11 13:11] LABS: D-DIMER 2.52 mg/L FEU (<0.50); INR 1.1; PROTHROMBIN TIME 11.9 sec (9.6-11.0)
[2020-04-11] MEDS ORDERED: CEFTRIAXONE 1 G PREMIX 50 ML IV NR (13:15)
[2020-04-11 13:19] LABS: PLATELET ESTIMATE INCREASED
[2020-04-11] MEDS ORDERED: MORPHINE SULFATE 4 MG/ML CPJ (NOT FOR IM USE) IV ONE (14:30)
[2020-04-11] MEDS ORDERED: ALBUTEROL (0.083%) 2.5MG/3ML NEB HHN STA (16:18)
[2020-04-11] MEDS ORDERED: IPRATROPIUM BROMIDE (0.02%) 0.5MG/2.5ML NEB HHN STA (16:18)
[2020-04-11] MEDS ORDERED: CLONIDINE 0.1MG TABLET PO PRN (19:45)
[2020-04-11 20:00] VITALS: BP_SYST 108; BP_SYST 110; BP_DIAS 77
[2020-04-11] MEDS: MORPHINE SULFATE 2 MG/ML CPJ (NOT FOR IM USE) IV PRN (20:08)
[2020-04-11] MEDS: ENOXAPARIN 40MG/0.4ML SYR SUBCUT SCH (20:09)
[2020-04-11] MEDS ORDERED: METHYLPREDNISOLONE SOD SUCC 40 MG/ML VIAL IV SCH (23:15)
[2020-04-12 00:05] VITALS: BP 136/74
[2020-04-12 00:28] LABS: CREATINE KINASE MB FRACTION 1.9 ng/mL (0.5-3.6)
[2020-04-12] MEDS: MORPHINE SULFATE 2 MG/ML CPJ (NOT FOR IM USE) IV PRN ×6 (00:41→22:59)
[2020-04-12] MEDS ORDERED: ALBUTEROL 6.7GM HFA INHALER ORI PRN ×2 (01:15→02:15)
[2020-04-12 04:00] VITALS: BP 130/89
[2020-04-12 06:57] LABS: BASOPHILS % 0.1 % (0.0-2.0); HEMATOCRIT. 30.8 % (36.0-48.0); HEMOGLOBIN. 9.8 g/dL (12.0-16.0); LYMPHOCYTES % 8.4 % (20.0-50.0); MEAN CORPUSCULAR HEMOGLOBIN 28.4 pg (28.0-32.0); MEAN CORPUSCULAR VOLUME 88.9 fL (81.0-99.0); MONOCYTES % 2.3 % (2.0-8.0); NEUTROPHILS % 89.2 % (40.0-76.0); PLATELET 493 x1000/uL (130-400); RED BLOOD CELL COUNT 3.46 mill/uL (4.2-5.4); RED CELL DISTRIBUTION WIDTH 16.3 % (11.6-14.6)
[2020-04-12 07:04] LABS: CHLORIDE 99 mEq/L (98-107)
[2020-04-12 07:16] LABS: LDL CHOLESTEROL 74 mg/dL (5-100)
[2020-04-12 07:18] LABS: CREATINE KINASE 46 IU/L (26-192); HDL CHOLESTEROL 80 mg/dL (40-59); T4 FREE 0.97 ng/dL (0.76-1.46)
[2020-04-12 07:21] LABS: CREATINE KINASE MB FRACTION 1.9 ng/mL (0.5-3.6)
[2020-04-12 08:00] VITALS: BP 124/83
[2020-04-12] MEDS ORDERED: METHYLPREDNISOLONE SOD SUCC 40 MG/ML VIAL IV SCH (12:00)
[2020-04-12] MEDS ORDERED: LEVOFLOXACIN 500MG PREMIX 100 ML IV SCH (13:00)
[2020-04-12] MEDS: IPRATROPIUM/ALBUTEROL 0.5-3(2.5)MG/3ML NEB HHN SCH ×2 (13:06→19:40)
[2020-04-12] MEDS ORDERED: HYDROCODONE/APAP 7.5/325MG 1 TAB TABLET PO PRN (15:15)
[2020-04-12] MEDS ORDERED: ACETAMINOPHEN 325MG TABLET PO PRN (15:15)
[2020-04-12] MEDS ORDERED: ACETAMINOPHEN 650MG SUPP PR PRN (15:15)
[2020-04-12] MEDS ORDERED: DIPHENHYDRAMINE 50MG/ML VIAL IV PRN (15:15)
[2020-04-12] MEDS ORDERED: LACTULOSE 20G/30ML UDC PO PRN (15:15)
[2020-04-12 16:21] VITALS: BP 110/81
[2020-04-12] MEDS: LORAZEPAM 0.5MG TABLET PO PRN (17:03)
[2020-04-12] MEDS: BUDESONIDE 0.5MG/2ML NEB HHN SCH (19:40)
[2020-04-12 20:00] VITALS: BP 130/94
[2020-04-12] MEDS: ENOXAPARIN 40MG/0.4ML SYR SUBCUT SCH (20:22)
[2020-04-13] VITALS: BP 120/85
[2020-04-13] MEDS: LORAZEPAM 0.5MG TABLET PO PRN (00:50)
[2020-04-13] MEDS: IPRATROPIUM/ALBUTEROL 0.5-3(2.5)MG/3ML NEB HHN SCH ×3 (01:06→15:52)
[2020-04-13] MEDS: MORPHINE SULFATE 2 MG/ML CPJ (NOT FOR IM USE) IV PRN ×3 (03:49→13:21)
[2020-04-13 04:00] VITALS: BP 115/74
[2020-04-13 06:13] LABS: BASOPHILS % 0.3 % (0.0-2.0); EOSINOPHILS % 0.1 % (0.0-5.0); HEMATOCRIT. 28.4 % (36.0-48.0); HEMOGLOBIN. 9.1 g/dL (12.0-16.0); LYMPHOCYTES % 26.7 % (20.0-50.0); MEAN CORPUSCULAR HEMOGLOBIN 28.1 pg (28.0-32.0); MEAN CORPUSCULAR VOLUME 88.1 fL (81.0-99.0); MEAN PLATELET VOLUME 7.2 fl (7.4-10.4); MONOCYTES % 8.7 % (2.0-8.0); NEUTROPHILS % 64.2 % (40.0-76.0); PLATELET 484 x1000/uL (130-400); RED BLOOD CELL COUNT 3.22 mill/uL (4.2-5.4); RED CELL DISTRIBUTION WIDTH 16.4 % (11.6-14.6)
[2020-04-13 06:32] LABS: CHLORIDE 96 mEq/L (98-107)
[2020-04-13 08:00] VITALS: BP 144/84
[2020-04-13] MEDS ORDERED: METHYLPREDNISOLONE SOD SUCC 40 MG/ML VIAL IV SCH (09:00)
[2020-04-13] MEDS ORDERED: PREDNISONE 20MG TABLET PO SCH (09:00)
[2020-04-13] MEDS: BUDESONIDE 0.5MG/2ML NEB HHN SCH (09:23)
[2020-04-13] MEDS ORDERED: LEVOFLOXACIN 500MG TABLET PO SCH (11:00)
[2020-04-13 12:00] VITALS: BP 116/81
[2020-04-13 15:06] VITALS: BP 122/77
[2020-04-13 16:00] VITALS: BP 122/77
[2020-04-13 16:06] LABS: CLARITY URINE CLEAR (CLEAR); COLOR URINE YELLOW (YELLOW); KETONES URINE NEGATIVE (NEGATIVE); LEUKOCYTE ESTERASE URINE NEGATIVE (NEGATIVE); NITRITE URINE NEGATIVE (NEGATIVE); OCCULT BLOOD URINE NEGATIVE (NEGATIVE); PH URINE >=9.0 (4.5-8.0); PROTEIN URINE NEGATIVE (NEGATIVE); SPECIFIC GRAVITY URINE 1.011 (1.005-1.030); UROBILINOGEN URINE 0.2 E.U./dL (0.2-1.0)
== END 2020-04-13 17:36 | disposition home or self-care (01) | DRG 191 ==
LOC: ER 11:00 → EDBEDREQ 11:59 → EDBEDREQTM 13:47 → EDBEDREQ 13:47 → 5WST 14:41 → EDBEDREQTM 14:54 → EDBEDREQ 14:54 → ENRESERV 18:05 → 7EST 23:49 → 6WST 04-12 12:32
PROVIDERS: ADMIT Internal Medicine; ATTEND Internal Medicine
DX: J44.1 Chronic obstructive pulmonary disease with (acute) exacerbation (principal); F11.20 Opioid dependence, uncomplicated; M87.9 Osteonecrosis, unspecified; F19.20 Other psychoactive substance dependence, uncomplicated; M79.89 Other specified soft tissue disorders; M48.02 Spinal stenosis, cervical region; D64.9 Anemia, unspecified; D72.829 Elevated white blood cell count, unspecified; F17.200 Nicotine dependence, unspecified, uncomplicated; F41.9 Anxiety disorder, unspecified; G89.29 Other chronic pain; I10 Essential (primary) hypertension; M48.00 Spinal stenosis, site unspecified; Z20.828 Contact with and (suspected) exposure to other viral communicable diseases; T38.0X5A Adverse effect of glucocorticoids and synthetic analogues, initial encounter; Z79.51 Long term (current) use of inhaled steroids; Z79.899 Other long term (current) drug therapy; Z86.718 Personal history of other venous thrombosis and embolism; Z99.81 Dependence on supplemental oxygen; Z88.0 Allergy status to penicillin; Y92.89 Other specified places as the place of occurrence of the external cause; F12.129 Cannabis abuse with intoxication, unspecified
CPT/HCPCS: 36415; 71045; 80048; 80053; 80061; 81003; 82550; 82553; 83605; 83880; 84145; 84439; 84443; 84484; 85025; 85379; 87426; 93005; 93923; 93971; 94640; 97162; 99291; J0696; J1200; J1650; J1956; J2270; J2405; J2920; J7030; J7512; J7626

== ENCOUNTER 2020-09-19 23:37 | Inpatient (IN) | payer OTHER, MEDICAID ==
[~2020-09-19] VITALS: Ht 160 cm; Wt 58.5 kg
[~2020-09-19 23:37] MED LIST changes: -GABA-531 MT; +GABA-532 MT; -MONT10TA26 PO; +MONT10TA32 PO; -OXYC-523 MT; +OXYC1TAB21 MT
[2020-09-20] MEDS ORDERED: IPRATROPIUM BROMIDE (0.02%) 0.5MG/2.5ML NEB HHN STA (00:06)
[2020-09-20] MEDS ORDERED: METHYLPREDNISOLONE SOD SUCC 125 MG/2 ML VIAL IV STA (00:06)
[2020-09-20] MEDS ORDERED: MAGNESIUM 2 G PREMIX 50 ML IV ONE (00:15)
[2020-09-20 00:32] LABS: BASOPHILS % 0.5 % (0.0-2.0); EOSINOPHILS % 0.2 % (0.0-5.0); HEMATOCRIT. 34.7 % (36.0-48.0); HEMOGLOBIN. 10.9 g/dL (12.0-16.0); LYMPHOCYTES % 21.7 % (20.0-50.0); MEAN CORPUSCULAR HEMOGLOBIN 28.1 pg (28.0-32.0); MEAN CORPUSCULAR VOLUME 89.5 fL (81.0-99.0); MONOCYTES % 9.2 % (2.0-8.0); NEUTROPHILS % 68.4 % (40.0-76.0); PLATELET 310 x1000/uL (130-400); RED BLOOD CELL COUNT 3.87 mill/uL (4.2-5.4); RED CELL DISTRIBUTION WIDTH 15.4 % (11.6-14.6)
[2020-09-20 00:33] LABS: CHLORIDE 98 mEq/L (98-107)
[2020-09-20] MEDS: ALBUTEROL (0.083%) 2.5MG/3ML NEB HHN SCH ×3 (00:50→08:18)
[2020-09-20 09:31] VITALS: BP 121/70
[2020-09-20 09:36] VITALS: BP 121/70
[2020-09-20] MEDS ORDERED: ACETAMINOPHEN 650MG SUPP PR PRN (11:30)
[2020-09-20] MEDS ORDERED: MAGNESIUM/ALUMINUM HYDROXIDE/SIMETHICONE 30ML UDC PO PRN (11:30)
[2020-09-20] MEDS ORDERED: DIPHENHYDRAMINE 50MG/ML VIAL IV PRN (11:30)
[2020-09-20] MEDS ORDERED: ALBUTEROL 6.7GM HFA INHALER ORI SCH (11:30)
[2020-09-20] MEDS ORDERED: NA PHOS,M-B/NA PHOS,DI-BA ENEMA 118ML PR PRN (11:30)
[2020-09-20] MEDS ORDERED: DOCUSATE SODIUM 100MG CAPSULE PO PRN (11:30)
[2020-09-20] MEDS ORDERED: GUAIFENESIN 200MG/10ML SUGAR FREE UDC PO PRN (11:30)
[2020-09-20] MEDS ORDERED: ONDANSETRON HCL 4MG/2ML INJ IV PRN (11:30)
[2020-09-20] MEDS ORDERED: CLONIDINE 0.1MG TABLET PO PRN (11:30)
[2020-09-20] MEDS ORDERED: ACETAMINOPHEN 650MG/20.3ML UDC GT PRN (11:30)
[2020-09-20 12:00] VITALS: BP_SYST 126; BP_SYST 147; BP_DIAS 70; BP_DIAS 86
[2020-09-20] MEDS: METHYLPREDNISOLONE SOD SUCC 40 MG/ML VIAL IV SCH ×2 (12:38→19:49)
[2020-09-20] MEDS: LEVOFLOXACIN 500MG PREMIX 100 ML IV SCH (12:57)
[2020-09-20] MEDS: ENOXAPARIN 40MG/0.4ML SYR SUBCUT SCH (13:16)
[2020-09-20] MEDS: HYDROCODONE/ACETAMINOPHEN 5/325MG TABLET PO PRN ×2 (13:36→19:49)
[2020-09-20 16:00] VITALS: BP 131/69
[2020-09-20 18:43] LABS: CLARITY URINE CLEAR (CLEAR); COLOR URINE YELLOW (YELLOW); KETONES URINE 3+ (NEGATIVE); LEUKOCYTE ESTERASE URINE NEGATIVE (NEGATIVE); NITRITE URINE NEGATIVE (NEGATIVE); OCCULT BLOOD URINE NEGATIVE (NEGATIVE); PROTEIN URINE 1+ (NEGATIVE); SPECIFIC GRAVITY URINE 1.027 (1.005-1.030)
[2020-09-20 19:12] LABS: OPIATES URINE SCREEN PRESUMTIVE POSITIVE (NEGATIVE)
[2020-09-20 19:13] LABS: *AMPHETAMINES SCREEN URINE NEGATIVE (NEGATIVE); *BARBITURATES SCREEN URINE NEGATIVE (NEGATIVE); *BENZODIAZEPINES SCREEN URINE NEGATIVE (NEGATIVE); *COCAINE SCREEN URINE NEGATIVE (NEGATIVE); CANNABINOID URINE SCREEN PRESUMTIVE POSITIVE (NEGATIVE); PHENCYCLIDINE URINE SCREEN NEGATIVE (NEGATIVE)
[2020-09-20 19:14] LABS: METHADONE URINE SCREEN NEGATIVE (NEGATIVE)
[2020-09-20] MEDS: FAMOTIDINE 20MG TABLET PO SCH (19:49)
[2020-09-20 20:00] VITALS: BP 183/90
[2020-09-20 22:08] LABS: INR 1.1; PROTHROMBIN TIME 11.5 sec (9.6-11.0)
[2020-09-20 22:16] LABS: CREATINE KINASE MB FRACTION 10.6 ng/mL (0.5-3.6)
[2020-09-21] VITALS: BP 117/75
[2020-09-21 00:54] LABS: CREATINE KINASE MB FRACTION 8.9 ng/mL (0.5-3.6)
[2020-09-21 04:00] VITALS: BP 125/73
[2020-09-21] MEDS: METHYLPREDNISOLONE SOD SUCC 40 MG/ML VIAL IV SCH ×3 (04:14→21:29)
[2020-09-21] MEDS: HYDROCODONE/ACETAMINOPHEN 5/325MG TABLET PO PRN ×4 (04:14→22:23)
[2020-09-21 06:12] LABS: CHLORIDE 98 mEq/L (98-107)
[2020-09-21 06:21] LABS: LDL CHOLESTEROL 99 mg/dL (5-100)
[2020-09-21 06:22] LABS: BASOPHILS % 0.2 % (0.0-2.0); HDL CHOLESTEROL 88 mg/dL (40-59); HEMATOCRIT. 33.1 % (36.0-48.0); HEMOGLOBIN. 10.4 g/dL (12.0-16.0); LYMPHOCYTES % 12.2 % (20.0-50.0); MEAN CORPUSCULAR HEMOGLOBIN 28.4 pg (28.0-32.0); MEAN CORPUSCULAR VOLUME 90.4 fL (81.0-99.0); MEAN PLATELET VOLUME 8.1 fl (7.4-10.4); MONOCYTES % 11.2 % (2.0-8.0); NEUTROPHILS % 76.4 % (40.0-76.0); PLATELET 309 x1000/uL (130-400); RED BLOOD CELL COUNT 3.66 mill/uL (4.2-5.4); RED CELL DISTRIBUTION WIDTH 15.5 % (11.6-14.6); T4 FREE 0.97 ng/dL (0.76-1.46)
[2020-09-21] MEDS: LORAZEPAM 0.5MG TABLET PO PRN ×2 (07:29→23:41)
[2020-09-21 08:00] VITALS: BP 151/90
[2020-09-21] MEDS: ASPIRIN 81MG EC TABLET PO SCH (08:42)
[2020-09-21] MEDS: ALBUTEROL (0.083%) 2.5MG/3ML NEB HHN SCH ×3 (09:00→21:14)
[2020-09-21] MEDS ORDERED: LIDOCAINE HCL/PF 1% 2ML VIAL ONE (09:16)
[2020-09-21] MEDS: MORPHINE SULFATE 2 MG/ML CPJ (NOT FOR IM USE) IV PRN ×3 (10:23→20:17)
[2020-09-21 10:27] LABS: BG BASE EXCESS 9.8 mmol/L (-2.0-2.0); BG CARBOXYHEMOGLOBIN 0.3 % (0.5-1.5); BG FRACTION INSPIRED OXYGEN 36; BG HCO3 ACT 37.7 mmol/L (22.0-26.0); BG METHEMOGLOBIN 0.2 % (0.0-1.5); BG OXYHEMOGLOBIN 98.5 % (94.0-97.0); BG PCO2 72.4 mmHg (35.0-45.0); BG PH 7.335 (7.350-7.450); BG PO2 179.7 mmHg (75.0-100.0); BG SAMPLE SITE RIGHT RADIAL; BG TOTAL HEMOGLOBIN 10.4 g/dL (12.0-18.0); BG VENT MODE NASAL CANNULA
[2020-09-21 12:18] VITALS: BP 122/84
[2020-09-21] MEDS: ENOXAPARIN 40MG/0.4ML SYR SUBCUT SCH (12:30)
[2020-09-21] MEDS: LEVOFLOXACIN 500MG PREMIX 100 ML IV SCH (15:11)
[2020-09-21 16:00] VITALS: BP 133/79
[2020-09-21 20:00] VITALS: BP 137/82
[2020-09-21] MEDS: FAMOTIDINE 20MG TABLET PO SCH (21:29)
[2020-09-22] VITALS: BP 147/99
[2020-09-22] MEDS: MORPHINE SULFATE 2 MG/ML CPJ (NOT FOR IM USE) IV PRN ×4 (00:56→13:24)
[2020-09-22] MEDS: ALBUTEROL (0.083%) 2.5MG/3ML NEB HHN SCH ×3 (02:17→14:49)
[2020-09-22] MEDS: HYDROCODONE/ACETAMINOPHEN 5/325MG TABLET PO PRN ×3 (02:30→11:13)
[2020-09-22] MEDS: METHYLPREDNISOLONE SOD SUCC 40 MG/ML VIAL IV SCH ×2 (03:10→11:12)
[2020-09-22 04:00] VITALS: BP 107/64
[2020-09-22 08:00] VITALS: BP 132/76
[2020-09-22] MEDS: ASPIRIN 81MG EC TABLET PO SCH (09:13)
[2020-09-22] MEDS ORDERED: LEVOFLOXACIN 500MG TABLET PO SCH (11:00)
[2020-09-22] MEDS ORDERED: LIDOCAINE HCL/PF 1% 2ML VIAL ONE (11:47)
[2020-09-22 12:00] VITALS: BP 115/44
[2020-09-22] MEDS ORDERED: IPRA3AMP9 NEB (12:17)
[2020-09-22] MEDS ORDERED: P20 PO (12:17)
[2020-09-22] MEDS ORDERED: FAMO-135 MT (12:17)
[2020-09-22 13:20] LABS: BG BASE EXCESS 12.3 mmol/L (-2.0-2.0); BG CARBOXYHEMOGLOBIN 0.3 % (0.5-1.5); BG DEOXYHEMOGLOBIN 1.5 % (0.0-5.0); BG FRACTION INSPIRED OXYGEN 32; BG HCO3 ACT 39.8 mmol/L (22.0-26.0); BG METHEMOGLOBIN 0.3 % (0.0-1.5); BG OXYGEN SATURATION 98.5 % (92.0-98.5); BG OXYHEMOGLOBIN 97.9 % (94.0-97.0); BG PCO2 70.6 mmHg (35.0-45.0); BG PH 7.369 (7.350-7.450); BG PO2 132.7 mmHg (75.0-100.0); BG SAMPLE SITE RIGHT RADIAL; BG VENT MODE NASAL CANNULA
[2020-09-22] MEDS: ENOXAPARIN 40MG/0.4ML SYR SUBCUT SCH (13:23)
[2020-09-22 15:32] LABS: HEMATOCRIT. 32.7 % (36.0-48.0); HEMOGLOBIN. 10.2 g/dL (12.0-16.0); MEAN CORPUSCULAR HEMOGLOBIN 28.5 pg (28.0-32.0); MEAN CORPUSCULAR VOLUME 91.5 fL (81.0-99.0); MEAN PLATELET VOLUME 8.2 fl (7.4-10.4); PLATELET 289 x1000/uL (130-400); RED BLOOD CELL COUNT 3.57 mill/uL (4.2-5.4); RED CELL DISTRIBUTION WIDTH 15.5 % (11.6-14.6)
[2020-09-22 15:51] LABS: CHLORIDE 98 mEq/L (98-107)
[2020-09-22 16:00] VITALS: BP 134/84
[2020-09-22 16:47] LABS: PLATELET ESTIMATE NORMAL
== END 2020-09-22 19:15 | disposition home or self-care (01) | DRG 280 ==
LOC: ER 23:37 → 7WST 09-20 02:51 → ENRESERV 09-20 07:58 → 5WST 09-20 08:39
PROVIDERS: ADMIT Internal Medicine; ATTEND Internal Medicine
PROC: 5A09357 Assistance with Respiratory Ventilation, Less than 24 Consecutive Hours, Continuous Positive Airway Pressure (ICD-10-PCS; principal; 2020-09-21)
DX: I21.4 Non-ST elevation (NSTEMI) myocardial infarction (principal); J96.21 Acute and chronic respiratory failure with hypoxia; J96.22 Acute and chronic respiratory failure with hypercapnia; J44.1 Chronic obstructive pulmonary disease with (acute) exacerbation; I31.3 Pericardial effusion (noninflammatory); F11.20 Opioid dependence, uncomplicated; M87.9 Osteonecrosis, unspecified; E78.5 Hyperlipidemia, unspecified; F41.9 Anxiety disorder, unspecified; G89.4 Chronic pain syndrome; I10 Essential (primary) hypertension; Z20.822 Contact with and (suspected) exposure to COVID-19; M48.02 Spinal stenosis, cervical region; I25.2 Old myocardial infarction; Z82.49 Family history of ischemic heart disease and other diseases of the circulatory system; Z86.718 Personal history of other venous thrombosis and embolism; Z87.891 Personal history of nicotine dependence; Z99.81 Dependence on supplemental oxygen; Z79.899 Other long term (current) drug therapy; Z88.0 Allergy status to penicillin; Z88.1 Allergy status to other antibiotic agents
CPT/HCPCS: 36415; 36600; 71045; 80048; 80053; 80061; 80305; 81003; 82375; 82550; 82553; 82805; 83605; 83735; 83880; 84145; 84439; 84443; 84484; 85025; 93005; 93306; 93970; 94640; 94644; 94660; 97162; 99291; J1650; J1956; J2270; J2920; J2930; J3475; J3490; J7040; U0003